=== PATIENT | male | born 1970 | race Caucasian/White ===

== ENCOUNTER → 2023-07-01 08:59 | Outpatient (REF) | payer MEDICARE, SELFPAY | LOC: RAD 08:59 | PROVIDERS: ATTENDING PHYSICIAN Surgery Vascular Surgery; FAMILY PHYSICIAN Family Medicine | DX: Z89.511 Acquired absence of right leg below knee (principal) | CPT/HCPCS: 93922; 93925 ==

== ENCOUNTER → 2023-07-03 06:43 | Outpatient (REF) | payer MEDICARE, SELFPAY ==
[2023-07-03 07:28] LABS: % Basophils 0.8 % (0-2); % Eosinophils 7.1 % (0-6); % Immature Granulocytes 0.4 % (0-0.5); % Lymphocytes 28.5 % (20.5-51.1); % Monocytes 7.7 % (1.7-9.3); % Neutrophils 55.5 % (42.2-75.2); Absolute Basophils 0.1 10^3/uL (0-0.2); Absolute Eosinophils 0.7 10^3/uL (0-0.7); Absolute Lymphocytes 2.8 10^3/uL (1.2-3.4); Absolute Monocytes 0.8 10^3/uL (0.1-0.6); Absolute Neutrophils 5.4 10^3/uL (1.4-6.5); Hematocrit 45.7 % (39.0-52.0); Hemoglobin 14.6 g/dL (13.0-18.0); Mean Corp Hgb Conc. 31.9 g/dL (33.0-37.0); Mean Corpuscular Hgb 30.1 pg (27.0-31.0); Mean Corpuscular Volume 94.2 fL (80.0-94.0); Mean Platelet Volume 11.1 fL (7.4-10.4); Nucleated Red Blood Cells % 0 % (-); Platelet Count 265 10^3/uL (130-400); Red Blood Cell Count 4.85 10^6/uL (4.70-6.10); Red Cell Dist. Width 13.1 % (11.5-14.5); White Blood Cell Count 9.7 10^3/uL (4.8-10.8)
[2023-07-03 08:30] LABS: ALT (SGPT) 38 U/L (0-50); AST (SGOT) 37 U/L (17-59); Albumin 4.1 g/dl (3.5-5.0); Alkaline Phosphatase 116 U/L (38-126); Blood Urea Nitrogen 19 mg/dl (9-20); Calcium 8.8 mg/dl (8.4-10.2); Carbon Dioxide 25 mmol/L (22-30); Chloride 107 mmol/L (98-107); Glucose 131 mg/dl (70-99); HDL Cholesterol 31 mg/dl; LDL Cholesterol, Calculated 23 mg/dl; Magnesium 2.3 mg/dl (1.6-2.3); Potassium 4.3 mmol/L (3.5-5.1); Sodium 138 mmol/L (135-145); Total Bilirubin 0.6 mg/dl (0.2-1.3); Total Cholesterol 105 mg/dl (50-199); Triglyceride 257 mg/dl (10-149); Very Low Density Lipoprotein 51 mg/dl (0-30); eGFR > 60.00
[2023-07-03 08:59] LABS: Glycohemoglobin (HgbA1c) 7.3 % (4.0-5.6)
== END ==
LOC: REG 06:43
PROVIDERS: ATTENDING PHYSICIAN Internal Medicine Interventional Cardiology; FAMILY PHYSICIAN Family Medicine; REFERRING PHYSICIAN Physician Assistant
DX: I10 Essential (primary) hypertension (principal); I25.5 Ischemic cardiomyopathy; E78.2 Mixed hyperlipidemia; I73.9 Peripheral vascular disease, unspecified; E10.52 Type 1 diabetes mellitus with diabetic peripheral angiopathy with gangrene; E10.65 Type 1 diabetes mellitus with hyperglycemia
CPT/HCPCS: 36415; 80053; 80061; 83036; 83735; 85025

== ENCOUNTER 2024-01-31 20:22 | Inpatient (IN) | payer MEDICARE, SELFPAY ==
[2024-01-31 18:04] VITALS: BP 141/74
[2024-01-31 18:49] VITALS: BMI 38.6
--- NOTE | 2024-01-31 19:05 | ED.GENMED ---
History of Present Illness
General
Chief Complaint: Fall
Source: patient
Time Seen by Provider: 01/31/24 18:54
History of Present Illness
History of Present Illness:
53yoM with a history of coronary artery disease, CHF, insulin-dependent diabetes, peripheral artery disease s/p right BKA, and chronic pain on opioids presenting with his for evaluation after a fall this afternoon. Patient was walking with his
prosthetic on when he missed a step and fell. He fell on his right buttocks. He denies any head strike or LOC. Patient is currently complaining of right hip and right knee pain. He denies any headache, neck pain, abdominal pain. He is unsure if he
takes any blood thinners. He states 'I take a lot of medications but I'm not sure what they are for.' Xarelto and aspirin listed on chart.
Past History
Past History
ED Past Medical History: CAD, Cancer, HTN, Hypercholesterolemia, IDDM, NIDDM, Other (Narcolepsy, sleep apnea) and Other (Gastric bypass, asthma, sleep apnea, hypothyroidism,)
ED Past Surgical History: Orthopedic (Distal toe amputation right second and third toes) and Other (Gastric bypass, right digit amputation, partial thyroidectomy)
Social History
Tobacco: Non-smoker
Alcohol: None
Drug: None
Personal:
Living: with family
Employment: Employed
Family History
Family History: Diabetes
Phy Exam
General Physical Exam
General Presentation: well appearing and no apparent distress
General age: appears stated age
General Skin: warm and dry
General Habitus: normal
General Mental: alert
ENT Exam
ENT Exam: normocephalic
Additional ENT: No cervical spine tenderness
Eye Exam
Eye Exam: PERRL
Cardiovascular Exam
Cardiovascular Exam: regular rate/rhythm
Pulmonary Exam
Pulmonary Exam: lungs clear, no respiratory distress, no crackles and no wheezing
Gastrointestinal Exam
Gastrointestinal Exam: non tender, soft and non distended
Neurological Exam
Neurological Exam: alert
[place] Coma Scale
Eye Opening: Spontaneous
Verbal Response: Oriented
Motor Response: Obeys Commands
GCS Total Score: 15
Musculoskeletal Exam
Musculoskeletal Exam: other (R hip: No deformity or ecchymosis noted. ROM decreased 2/2 pain. Pain with passive internal and external rotation of hip. Stump appears normal.)
Skin Exam
Skin Exam: normal color
Psychiatric Exam
Psychiatric Exam: normal mood/affect
Course
Orders/Labs/Results
Orders:
Orders
01/31/24 18:07
CR Knee - Right 1 Or 2 Views Urgent
Reason For Exam: pain
Hip, Right 2-3 Views [CR Hip - RT w/wo Pel 2-3 Vw*] Urgent
Comment:
Reason For Exam: pain
Include a pelvis x-ray?: Yes
01/31/24 19:05
HYDROmorphone [Dilaudid] 1 mg IV NOW STA
01/31/24 19:12
CR Femur - Right Min 2 Vw Urgent
Comment:
Reason For Exam: F/u hip fracture
01/31/24 19:15
Type+Screen Urgent
Complete Blood Count/With Diff Urgent
Comprehensive Metabolic Panel Urgent
PTT Urgent
Prothrombin Time Urgent
01/31/24 20:10
Admit/Transfer Patient As Directed
Co-Sign Provider:
Level of Care: Inpatient admission
Assign to:: Medical/Surgical
Physician / Group: [facility]
Diagnosis: hip fracture
Reason for Hospitalization: hip fracture
Expected length of stay greater than two midnights?: Yes
ELOS- Estimated Length of Stay in days: 2
I certify the patient meets the requirements for IP care: Yes
Code Status As Directed
Resuscitation Status: Full Code
PRN Pain Medication Management As Directed
May give lesser potent ordered pain med per pt: Yes
preference::
Protocol:: Medication orders for pain may be administered in a
manner that supports deferring to patient preference
when the pt is:
- Requesting an ordered lesser potent pain medication.
Least to most potent pain medications are defined
as: acetaminophen < NSAID < tramadol < opioids
(morphine, oxycodone, hydromorphone).
- Requesting a lesser dose of the same medication IF
ORDERED.
- Requesting a less intrusive route of administration
if both routes are prescribed by the provider (PO <
IV).
Abnormal Lab Results
01/31/24
19:15
WBC 13.8 H 10^3/uL
(4.8-10.8)
RBC 4.60 L 10^6/uL
(4.70-6.10)
MCHC 32.7 L g/dL
(33.0-37.0)
MPV 10.9 H fL
(7.4-10.4)
Abs Immat Gran (auto) 0.1 H 10^3/uL
(0-0.05)
Absolute Neuts (auto) 10.8 H 10^3/uL
(1.4-6.5)
Absolute Monos (auto) 0.9 H 10^3/uL
(0.1-0.6)
Immature Gran % 0.7 H %
(0-0.5)
Neutrophils % 78.4 H %
(42.2-75.2)
Lymphocytes % 11.4 L %
(20.5-51.1)
BUN 23 H mg/dl
(9-20)
Glucose 104 H mg/dl
(70-99)
01/31/24 19:15
01/31/24 19:15
Vital Signs
Initial and Last Documented VS:
Initial Vital Signs
Temp Pulse Resp BP Pulse Ox
98 F 80 16 141/74 93
01/31/24 18:04 01/31/24 18:04 01/31/24 18:04 01/31/24 18:04 01/31/24 18:04
Last Documented Vital Signs
Temp Pulse Resp BP Pulse Ox
98 F 80 16 141/74 93
01/31/24 18:04 01/31/24 18:04 01/31/24 18:04 01/31/24 18:04 01/31/24 18:04
MDM/Problems Addressed
Differential Diagnosis Includes:
53yoF here with R hip and knee pain s/p mechanical fall this afternoon. Hx of R BKA. No deformity on exam. There is pain with ROM of the hip. RLE is neurovascularly intact. Differential diagnosis includes but is not limited to: fracture,
dislocation, contusion, sprain
X-rays of R hip and knee obtained in triage. X-rays shows an intertrochanteric fracture that is mildly displaced. Orthopedics, Dr. Cerrato, notified who requests full length femur films. IV, labs, and Dilaudid ordered. Patient admitted for further
management.
*Critical Care Note
Total Time (30-74mins, 75-104mins- exclusive of procedures): Not Applicable
ED Attending Note
-
Portions of this chart may have been created with voice recognition software.� Occasional wrong word or��sound alike� substitutions may have occurred due to the inherent limitations of voice recognition software.
Discharge Plan
Departure
Patient Disposition: Admit
Date of Disposition: 01/31/24
Time of Disposition: 19:36
Presentation/result/management discussed w/ accepting MD/DO: Hospitalist
Discharge Problem:
Closed intertrochanteric fracture of right femur
Interventions
Interventions:
*Risk Screen - Suicide Last Done: 01/31/24 18:04
*General Assessment Last Done: 01/31/24 18:50
*Neglect/Abuse Screening Last Done: 01/31/24 18:50
*ED COVID-19 Vaccine History Last Done: 01/31/24 18:50
ED-Musculoskeletal Assessment Last Done: 01/31/24 18:52
ED- Neurological Assessment Last Done: 01/31/24 18:52
ED-Skin Assessment Last Done: 01/31/24 18:52
[2024-01-31] MEDS: DILAUDID 1 MG IV (19:16)
[2024-01-31 19:27] LABS: % Basophils 0.6 % (0-2); % Eosinophils 2.6 % (0-6); % Immature Granulocytes 0.7 % (0-0.5); % Lymphocytes 11.4 % (20.5-51.1); % Monocytes 6.3 % (1.7-9.3); % Neutrophils 78.4 % (42.2-75.2); Absolute Basophils 0.1 10^3/uL (0-0.2); Absolute Eosinophils 0.4 10^3/uL (0-0.7); Absolute Immature Granulocytes 0.1 10^3/uL (0-0.05); Absolute Lymphocytes 1.6 10^3/uL (1.2-3.4); Absolute Monocytes 0.9 10^3/uL (0.1-0.6); Absolute Neutrophils 10.8 10^3/uL (1.4-6.5); Hematocrit 39.7 % (39.0-52.0); Mean Corp Hgb Conc. 32.7 g/dL (33.0-37.0); Mean Corpuscular Hgb 28.3 pg (27.0-31.0); Mean Corpuscular Volume 86.3 fL (80.0-94.0); Mean Platelet Volume 10.9 fL (7.4-10.4); Nucleated Red Blood Cells % 0 % (-); Platelet Count 248 10^3/uL (130-400); Red Cell Dist. Width 14.1 % (11.5-14.5); White Blood Cell Count 13.8 10^3/uL (4.8-10.8)
[2024-01-31 19:39] LABS: APTT 34.2 Sec (23.4-35.0)
[2024-01-31 19:42] LABS: INR 1.16; PT 14.6 Sec (11.4-14.6)
[2024-01-31 19:46] LABS: ALT (SGPT) 27 U/L (0-50); AST (SGOT) 31 U/L (17-59); Albumin 4.4 g/dl (3.5-5.0); Alkaline Phosphatase 125 U/L (38-126); Blood Urea Nitrogen 23 mg/dl (9-20); Calcium 9.2 mg/dl (8.4-10.2); Carbon Dioxide 22 mmol/L (22-30); Chloride 105 mmol/L (98-107); Estimated Creatinine Clearance 116 ml/min; Glucose 104 mg/dl (70-99); Potassium 4.2 mmol/L (3.5-5.1); Sodium 143 mmol/L (135-145); Total Bilirubin 0.4 mg/dl (0.2-1.3); Total Protein 7.2 g/dl (6.3-8.2); eGFR > 60.00
--- NOTE | 2024-01-31 20:14 | HPS.HSE ---
Family Physician
-
Family Physician: Obi Shin
Chief Complaint
-
fall, right hip pain
History of Present Illness
53-year-old male past medical history of CAD, HFpEF, diabetes, hyperlipidemia, peripheral arterial disease, hypertension, hyperlipidemia, peripheral neuropathy, hypothyroidism, anemia, obesity, presenting for fall this afternoon. He was walking
with his prosthetic when he missed a step and fell. He fell onto his right buttock. Denies hitting his head. He is complaining of right hip and right knee pain.
He last took Xarelto last night.
He denies any recent chest pain or shortness of breath.
Medical History
Past Medical History
Past Medical History: Reports Other ( CAD, HFpEF, diabetes, hyperlipidemia, peripheral arterial disease, hypertension, hyperlipidemia, peripheral neuropathy, hypothyroidism, anemia, obesity, )
Past Surgical History: Reports Other (Orthopedic (Distal toe amputation right second and third toes) and Other (Gastric bypass, right digit amputation, partial thyroidectomy))
Social History
Tobacco: Non-smoker
Alcohol: None
Drug: None
Family History
Family History: Not pertinent
Allergies / Home Medications
Allergies reflects when Allergies were last updated in [employer].
Home Medications with original date entered in [employer]
Allergy/Medication List:
Allergies
Allergy/AdvReac Type Severity Reaction Status Date / Time
Iodinated Contrast Media Allergy Severe Anaphylaxis Verified 01/31/24 18:06
[Iodinated Contrast Media -
IV Dye]
Poultry Allergy Severe Anaphylaxis Verified 01/31/24 18:06
Home Medications
aspirin 81 mg tablet,delayed release 81 mg PO DAILY Blood clot prevention/tx 08/30/17
dapagliflozin propanediol 10 mg tablet (Farxiga) 10 mg PO DAILY Diabetes 01/09/22
dextroamphetamine-amphetamine 20 mg tablet See Rx Instructions .Route .COMPLEX ADD 01/09/22
glipizide 10 mg tablet 10 mg PO MEALS Diabetes 01/09/22
levothyroxine 200 mcg tablet 200 mcg PO DAILY AT 0700 Thyroid 01/09/22
atorvastatin 80 mg tablet (Lipitor) 80 mg PO QPM High cholesterol 05/10/22
insulin human U-100 NPH-regulr 70-30 mix 100 unit/mL subcutaneous susp (Novolin 70/30 U-100 Insulin) 90 unit SC BID Diabetes 05/10/22
insulin regular human 100 unit/mL injection solution (Novolin R Regular U-100 Insulin) 30 unit SC AC Diabetes 05/10/22
dicyclomine 10 mg capsule 10 mg PO QID Abdominal Pain #0 caps 05/22/22
furosemide 40 mg tablet 40 mg PO BID@0800,1600 Heart Failure #60 tabs 05/22/22
zolpidem 10 mg tablet (Ambien) 10 mg PO HS Sleep 07/02/22
hydrocodone 10 mg-acetaminophen 325 mg tablet 1 tab PO QID PRN pain 09/26/22
metoprolol succinate 50 mg tablet,extended release 24 hr See Rx Instructions .Route .COMPLEX Heart disease/condition 09/26/22
potassium chloride 20 mEq tablet,extended release 10 meq PO TID Electrolyte Repletion 09/26/22
rivaroxaban 20 mg tablet (Xarelto) 20 mg PO QPM Blood clot prevention/tx 09/26/22
multivitamin 1 tab PO DAILY Supplement 10/01/22
ferrous sulfate 325 mg (65 mg iron) tablet 325 mg PO DAILY 12/17/22
mecobalamin (vitamin B12) 1,000 mcg chewable tablet 2,000 mcg PO DAILY 12/17/22
hydromorphone 8 mg tablet (Dilaudid) See Rx Instructions .Route .COMPLEX 12/19/22
cholecalciferol (vitamin D3) 50 mcg (2,000 unit) tablet See Rx Instructions .Route .COMPLEX 07/23/23
duloxetine 30 mg capsule,delayed release See Rx Instructions .Route .COMPLEX 07/23/23
magnesium 200 mg tablet See Rx Instructions .Route .COMPLEX 07/23/23
sacubitril 49 mg-valsartan 51 mg tablet (Entresto) See Rx Instructions .Route .COMPLEX 07/23/23
Review of Systems
-
History Source: Patient
A 12 point ROS was completed and negative except as noted: Yes
Constitutional: Reports No Symptoms
EENT: Reports No Symptoms
Respiratory: Reports No Symptoms
Cardiac: Reports No Symptoms
Abdomen/GI: Reports No Symptoms
: Reports No Symptoms
Musculoskeletal: Reports No Symptoms
Skin: Reports No Symptoms
Neurological: Reports No Symptoms
Endocrine: Reports No Symptoms
Hematologic/Lymphatic: Reports No Symptoms
Psych: Reports No Symptoms
Physical Exam
Vital Signs
Vital Signs
Temp Pulse Resp BP Pulse Ox
98 F 80 16 141/74 93
01/31/24 18:04 01/31/24 18:04 01/31/24 18:04 01/31/24 18:04 01/31/24 18:04
Physical Exam
General: Well Developed, Well Nourished and No Apparent Distress
HEENT: NormoCephalic, Moist mucous membranes and Atraumatic
Respiratory: Clear
Cardiac: S1/S2 and Regular Rhythm; No Murmur or Rub
GI: Soft, Non Tender, Non Distended and Normal Bowel Sounds; No Organomegaly
Rectal: Deferred by Provider
Musculoskeletal: No Clubbing, No Cyanosis and No Edema
Skin: No Rash
Neuro: Nonfocal/grossly intact
Laboratory Results
-
01/31/24 19:15
01/31/24 19:15
Laboratory Results
PT 14.6 Sec (11.4-14.6) 01/31/24 19:15
INR 1.16 01/31/24 19:15
APTT 34.2 Sec (23.4-35.0) 01/31/24 19:15
Total Bilirubin 0.4 mg/dl (0.2-1.3) 01/31/24 19:15
AST 31 U/L (17-59) 01/31/24 19:15
ALT 27 U/L (0-50) 01/31/24 19:15
Alkaline Phosphatase 125 U/L (38-126) 01/31/24 19:15
Data Reviewed
-
Lab Data: Labs Reviewed by me
Old Records: Reviewed
Impression/Plan
-
IMPRESSION:
PLAN:
# Acute right intertrochanteric proximal femur fracture with mild displacement
-Hold Xarelto
-N.p.o. past midnight although he last took Xarelto last night
-Ortho consulted
-Patient is high risk for surgery given history of CAD, PAD, diabetes, however well compensated without chest pain or evidence of heart failure at this time
CAD
-Continue aspirin, statin
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
Chronic HFmrEF
-Continue dapagliflozin
-Continue Entresto
-Continue Lasix
Peripheral arterial disease status post right BKA
Essential hypertension
-Continue metoprolol
Type 2 diabetes
-Patient normally takes 90 units of Novolin 70/30 twice daily plus sliding scale
-Change to NPH 45 BID plus high-dose insulin sliding scale, uptitrate as necessary
-Continue dapagliflozin
-Hold glipizide
Hyperlipidemia
Peripheral neuropathy/phantom pain
-Continue duloxetine
-Continue hydrocodone/Tylenol, Dilaudid
Hypothyroidism
-Continue levothyroxine
Chronic anemia
Obesity
Full code
DVT prophylaxis�none
Diabetic diet, n.p.o. past midnight
[2024-01-31 21:39] VITALS: BP 155/81; BMI 39.0
[2024-01-31] MEDS: DILAUDID 0.5 MG IV (23:15)
[2024-02-01] VITALS (11 sets, daily range): BP systolic 103–152; BP diastolic 54–71; BMI 38.9
[2024-02-01] MEDS: NORCO 7.5/325 1 TABLET PO ×3 (05:06→22:32)
[2024-02-01 06:38] LABS: Glucose - Point of Care 157 mg/dl (70-99)
--- NOTE | 2024-02-01 07:27 | W.PN.HOSP.TC ---
Today's Communication/Plan
-
NPO for orthopedic surgical intervention right Hip
At elevated risk complications but risk is not prohibitive
Glycemic Control
Pain Control
Assessment / Plan
Assessment / Plan
Physical Exam
General: Well Developed, Well Nourished and No Apparent Distress
HEENT: NormoCephalic, Moist mucous membranes and Atraumatic
Respiratory: Clear
Cardiac: S1/S2 and Regular Rhythm; No Murmur or Rub
GI: Soft, Non Tender, Non Distended and Normal Bowel Sounds; No Organomegaly
Musculoskeletal: No Clubbing, No Cyanosis and No Edema. Right BKA
Skin: No Rash
Neuro: AOx3
53MCAD, HFmrEF, diabetes, hyperlipidemia, peripheral arterial disease, rt BKA, hypertension, hyperlipidemia, neuropathy, hypothyroidism, anemia, obesity, ambulates with prosthetic at baseline here for fall right hip fracture
# Acute right intertrochanteric proximal femur fracture with mild displacement
-Hold Xarelto
-N.p.o.
-Ortho consult appreciated
-Patient is high risk for surgery complication given history of CAD, PAD, diabetes, however well compensated without chest pain or evidence of heart failure at this time. Risk is not prohibitive
CAD
-Continue aspirin, statin
-Patient states his lymphedema therapist ordered Xarelto but he does not know why, denies history of A-fib
Chronic HFmrEF
-Continue dapagliflozin
-Continue Entresto
-Continue Lasix
Peripheral arterial disease status post right BKA
Essential hypertension
-Continue metoprolol
Type 2 diabetes
-sliding scale
-insulin regimen, monitor and titrate as necessary
-Continue dapagliflozin
-Hold glipizide
Hyperlipidemia
Peripheral neuropathy/phantom pain
-Continue duloxetine
-Continue hydrocodone/Tylenol, Dilaudid
Hypothyroidism
-Continue levothyroxine
Chronic anemia
Obesity
Full code
DVT prophylaxis on hold for now pending orthopedic surgical intervention, not a candidate for SCD d/t Peripheral Artery Disease.
I spent a total of 50 minutes with the patient or on the floor. More than 50% of this time involved counseling and coordination of care.
Anticipated Discharge: > 48 hours
Subjective/Interval History
-
Date of Service: February 01, 2024
Seen and examined at bedside in no acute distress resting comfortably in bed. Reports pain well controlled at this time.
Objective Data
-
Labs:
Laboratory Results
01/31/24 02/01/24
19:15 06:35
WBC 13.8 H Pending
Hgb 13.0 Pending
Hct 39.7 Pending
Plt Count 248 Pending
PT 14.6
INR 1.16
APTT 34.2
Sodium 143 Pending
Potassium 4.2 Pending
Chloride 105 Pending
Carbon Dioxide 22 Pending
BUN 23 H Pending
Creatinine 0.9 Pending
Glucose 104 H Pending
Calcium 9.2 Pending
Total Bilirubin 0.4 Pending
AST 31 Pending
ALT 27 Pending
Alkaline Phosphatase 125 Pending
Vital Signs:
Vital Signs
Temp Pulse Resp BP Pulse Ox
97.9 F 79 18 155/81 95
01/31/24 21:39 01/31/24 21:39 01/31/24 21:39 01/31/24 21:39 01/31/24 21:39
I&O
01/31/24 02/01/24 02/02/24
06:59 06:59 06:59
Output Total 100 / 100
Balance -100 / -100
[2024-02-01 07:37] LABS: % Basophils 0.6 % (0-2); % Immature Granulocytes 0.4 % (0-0.5); % Lymphocytes 14.5 % (20.5-51.1); % Monocytes 7.9 % (1.7-9.3); % Neutrophils 69.6 % (42.2-75.2); Absolute Basophils 0.1 10^3/uL (0-0.2); Absolute Eosinophils 0.8 10^3/uL (0-0.7); Absolute Lymphocytes 1.6 10^3/uL (1.2-3.4); Absolute Monocytes 0.9 10^3/uL (0.1-0.6); Absolute Neutrophils 7.8 10^3/uL (1.4-6.5); Hematocrit 39.5 % (39.0-52.0); Mean Corp Hgb Conc. 32.9 g/dL (33.0-37.0); Mean Corpuscular Hgb 29.5 pg (27.0-31.0); Mean Corpuscular Volume 89.8 fL (80.0-94.0); Mean Platelet Volume 11.5 fL (7.4-10.4); Nucleated Red Blood Cells % 0 % (-); Platelet Count 221 10^3/uL (130-400); Red Cell Dist. Width 14.1 % (11.5-14.5); White Blood Cell Count 11.2 10^3/uL (4.8-10.8)
[2024-02-01 08:00] LABS: ALT (SGPT) 23 U/L (0-50); AST (SGOT) 26 U/L (17-59); Albumin 3.9 g/dl (3.5-5.0); Alkaline Phosphatase 130 U/L (38-126); Blood Urea Nitrogen 19 mg/dl (9-20); Calcium 8.8 mg/dl (8.4-10.2); Carbon Dioxide 26 mmol/L (22-30); Chloride 102 mmol/L (98-107); Estimated Creatinine Clearance > 125 ml/min; Glucose 131 mg/dl (70-99); Potassium 4.8 mmol/L (3.5-5.1); Sodium 140 mmol/L (135-145); Total Protein 6.8 g/dl (6.3-8.2); eGFR > 60.00
--- NOTE | 2024-02-01 08:11 | PTCARENOTE ---
Patient refused both insulins this AM. Patient stated, 'I am not taking insulin if I cannot eat'. Patient educated that since the patient is NPO he will get his blood sugar checked every 6 hours and insulin will be dosed based off of blood sugar.
Patient refused education. Dr. Henry made aware. Care ongoing at this time.
[2024-02-01] MEDS: DILAUDID 1 MG IV (08:31)
--- NOTE | 2024-02-01 08:55 | CON.ORTHO ---
Consultation
-
Date/Time Consultation Requested: 01/31/2024 0711
Date/Time Consultation Performed: 02/01/2024 0800
Requesting Provider: Patricia Belle
Performing Provider: Valerio Cerrato
Reason for Consultation: Right hip fracture
Consultation - Orthopedics
History
Orthopedic Surgery Note
CC: Right hip fracture
HPI: 53-year-old male with a history of right BKA presented to the emergency department after sustaining a trip and fall. He landed on the right side and had immediate pain and was unable to weight-bear. X-rays in the ER showed signs of a
displaced proximal femur fracture. He has pain in the right groin and thigh. His below-knee amputation was performed about 18 months ago. He has been ambulating with a prosthesis. He denies pain in the left leg of the upper extremities.
PMH/PSH: CAD, DM, HL, PAD, HTN, HL, hypothyroid, obesity, R BKA
Medications: reviewed, eliquis
Family History: Family history was reviewed. Noncontributory
Social history: Nonsmoker, no illicit drugs
Exam
General appearance: Pleasant. Painful affect.
Head: Normocephalic/atraumatic
Nose: No lesions or discharge.
Skin: No obvious rashes or open wounds
Lungs: No audible wheezing, no cough or sputum production
Musculoskeletal:
RLE:
skin intact without open wounds
transtibial amputation
pain with active motion
scar on thigh c/w prior skin graft donor site
Imaging:
Pelvis and right femur x-rays show signs of a intertrochanteric right femur fracture with displacement. No distal hardware or pathologic appearing lesions.
AP: 53-year-old male with a right intertrochanteric proximal femur fracture. I discussed treatment options with the patient. We discussed surgical fixation with cephalomedullary nail. We discussed the risks of surgery including infection,
nonunion, malunion, hardware complications, and continued pain. Shared decision was to proceed with right proximal femur ORIF with cephalomedullary nail. We discussed the recovery process. All questions were answered.
> 75 minutes was spent reviewing the clinical information, evaluating the patient, and formulating clinical plan.
Allergies / Home Medications
Allergy/AdvReac Type Severity Reaction Status Date / Time
Iodinated Contrast Media Allergy Anaphylaxis Verified 01/31/24 22:11
[Iodinated Contrast Media -
IV Dye]
Poultry Allergy Anaphylaxis Verified 01/31/24 22:11
�Medication �Instructions �Recorded
aspirin 81 mg tablet,delayed 81 mg PO DAILY Blood clot 08/30/17
release prevention/tx
dapagliflozin propanediol 10 mg 10 mg PO DAILY Diabetes 01/09/22
tablet (Farxiga)
dextroamphetamine-amphetamine 20 See Rx Instructions .Route 01/09/22
mg tablet .COMPLEX ADD
glipizide 10 mg tablet 10 mg PO MEALS Diabetes 01/09/22
levothyroxine 200 mcg tablet 200 mcg PO DAILY AT 0700 Thyroid 01/09/22
atorvastatin 80 mg tablet (Lipitor) 80 mg PO QPM High cholesterol 05/10/22
insulin human U-100 NPH-regulr 90 unit SC BID Diabetes 05/10/22
70-30 mix 100 unit/mL subcutaneous
susp (Novolin 70/30 U-100 Insulin)
insulin regular human 100 unit/mL 30 sliding scale dose SC AC 05/10/22
injection solution (Novolin R Diabetes
Regular U-100 Insulin)
dicyclomine 10 mg capsule 10 mg PO QID Abdominal Pain #0 caps 05/22/22
furosemide 40 mg tablet 40 mg PO BID@0800,1600 Heart 05/22/22
Failure #60 tabs
zolpidem 10 mg tablet (Ambien) 10 mg PO HS Sleep 07/02/22
hydrocodone 10 mg-acetaminophen 1 tab PO QID PRN pain 09/26/22
325 mg tablet
metoprolol succinate 50 mg See Rx Instructions .Route 09/26/22
tablet,extended release 24 hr .COMPLEX Heart disease/condition
potassium chloride 20 mEq 10 meq PO TID Electrolyte Repletion 09/26/22
tablet,extended release
rivaroxaban 20 mg tablet (Xarelto) 20 mg PO QPM Blood clot 09/26/22
prevention/tx
multivitamin 1 tab PO DAILY Supplement 10/01/22
ferrous sulfate 325 mg (65 mg 325 mg PO DAILY 12/17/22
iron) tablet
mecobalamin (vitamin B12) 1,000 2,000 mcg PO DAILY 12/17/22
mcg chewable tablet
hydromorphone 8 mg tablet See Rx Instructions .Route .COMPLEX 12/19/22
(Dilaudid)
cholecalciferol (vitamin D3) 50 See Rx Instructions .Route .COMPLEX 07/23/23
mcg (2,000 unit) tablet
duloxetine 30 mg capsule,delayed See Rx Instructions .Route .COMPLEX 07/23/23
release
magnesium 200 mg tablet See Rx Instructions .Route .COMPLEX 07/23/23
sacubitril 49 mg-valsartan 51 mg See Rx Instructions .Route .COMPLEX 07/23/23
tablet (Entresto)
Vital Signs / Lab Results
Temp Pulse Resp BP Pulse Ox
98.1 F 68 18 152/68 99
02/01/24 07:25 02/01/24 07:25 02/01/24 07:25 02/01/24 07:25 02/01/24 07:25
02/01/24 06:35
02/01/24 06:35
[2024-02-01 11:00] LABS: Glycohemoglobin (HgbA1c) 6.5 % (4.0-5.6)
--- NOTE | 2024-02-01 11:04 | CM ---
CM met with pt and spouse at bedside.
Pt resides with spouse in a 1 with ramp access. Pt uses a prosthetic, WC, RW and shower chair at home.
Confirmed PCP is Obi Miller and pharmacy is [facility] on [address].
Confirmed insurance, unsure if has a prescription plan.
Pt has HC history with [facility]. Rehab hx with [facility].
Pt currently is going to outpt PT at [facility] 2 times/week and preference is to resume when cleared to do so. Pt declines HC services at this time and is not interested in SNF.
CM/SW to follow and assist.
--- NOTE | 2024-02-01 11:50 | PTCARENOTE ---
1200 blood sugar check and insulin administration not completed due to patient being in OR. Care ongoing at this time.
--- NOTE | 2024-02-01 14:05 | OR.RPT ---
Operative Report
Operative Report
Orthopaedic Surgery Operative Note
DATE OF OPERATION: 02/01/2024
PREOPERATIVE DIAGNOSIS: Intertrochanteric Hip Fracture, Right
POSTOPERATIVE DIAGNOSIS: Same
OPERATION PERFORMED: Right intertrochanteric hip fracture open reduction and internal fixation with cephalomedulary nail
SURGEON: Suraj Cerrato MD
GEODETIC SURVEYOR: NA
ANESTHESIA: General
COMPLICATIONS: None.
ESTIMATED BLOOD LOSS: 200 mL.
DRAINS: None
SPECIMEN: None
IMPLANTS:
Bautista Gamma Cephalomeduallary nail; 400 mm by 10 mm
Hyden lag screw, 100 mm.
5.0 mm distal interlocking screw x1
INDICATIONS FOR PROCEDURE
53M with h/o R transtibial amputation presented to the ED after a fall. Xrays showed displaced right intertrochanteric hip fracture. I discussed treatment options with the patient including nonoperative and operative treatments. We reviewed the
natural history of the problem, as well as the risks, benefits, and alternatives of various treatment options. Shared decision was to proceed with surgical treatment. The patient understood the risks including, but were not limited to, bleeding,
infection, failure to relieve pain, more pain than preop, damage to blood vessels and nerves, need for reoperation, mechanical failure of the implants, wound healing problems, stiffness, instability, blood clot, pulmonary embolism, myocardial
infarction, pneumonia, arrhythmia, CVA, and . All questions were answered, and informed consent was obtained.
PROCEDURE IN DETAIL: The patient was identified in the preoperative holding area. The operative limb was identified as the operative site and marked with my initials. The patient was transferred to the operating room. General anesthesia was
performed. The patient was transferred to the [facility] operative table. IV antibiotics and tranexamic acid were given. All bony prominences were well padded. The operative limb was prepped and draped in the usual sterile fashion.
We performed a surgical time-out. A 1.6mm (0.65'') sarahy wire was placed in the distal femur, and traction bow was applied. This was well padded over the knee. 15lbs of skeletal traction was applied. The fracture was reduced with the aid of
flouroscopy. The guide wire was placed over the medial aspect of the tip of the greater trochanter. The guide wire was advanced and checked for appropriate position on AP and lateral. The pin guide wire was advanced to the level of the lesser
trochanter. Incision was made about the wire. The opening reamer was used to open the starting point over the guide wire. A ball-tipped guide wire was advanced to the distal femur. Length was measured to be 410 mm. The femoral canal was sequentially
reamed with the fracture reduced starting with a 9.5mm reamer up to 11.5mm. The nail was then inserted over the guidewire down to the appropriate depth. The guide wire was removed. The targeting guide was assembled, and a lateral incision was made
for lag screw placement. A guide pin was advanced into the femoral head. Position was checked on AP and lateral. The length was measured to be 108mm. The drill was set to the appropriate depth, and the lag screw path was drilled over the guide wire.
The lag screw was then inserted into the femoral head just distal to the subchondral bone. Compression was applied to the fracture. The locking screw was then placed into the top of the nail. Skeletal traction was removed, and a single distal
interlocking screw was placed into the static hole with perfect keweenaw technique. Final fluoroscopy shots were performed which showed appropriate position and length of the implant and anatomic reduction of the fracture.
The incisions were copiously irrigated with 3L of normal saline. The deep fascial layers were closed with 0 PDS. The dermal layer closed with 2-0 PDS running. The skin was closed with 3-0 monocryl. Skin glue was applied as well as sterile dressings.
The patient was awoken from anesthesia without complication.
The patient awoke from anesthesia without difficulty. Sponge and instrument counts were correct x2 at the end of the case.
I was present and participated in the entire procedure. The patient was sent to the recovery room in stable condition.
Post operative plan:
WBAT
PT/OT
Pain control
ABX: Ancef
DVT: Resume factor X
Valerio Cerrato MD
[2024-02-01 14:06] LABS: Glucose - Point of Care 130 mg/dl (70-99)
[2024-02-01] MEDS: DILAUDID 0.5 MG IV ×2 (14:31→14:56)
--- NOTE | 2024-02-01 15:44 | PTCARENOTE ---
1535: Patient arrived back to 2S post surgery. Patient drowsy but arouses easily to voice. 2 aquacell's on R hip clean dry and intact. 2 4x4 with tegaderm on medial and lateral pats of R knee clean dry and intact. Patient wearing 2L NC with SpO2
greater than 92%. Call aguirre within reach and bed in lowest position. Family at bedside.
--- NOTE | 2024-02-01 16:40 | PTCARENOTE ---
Patient more alert. Patient complaining of R hip pain. Pain medication administered per JUL. Care ongoing at this time.
[2024-02-01 16:44] LABS: Glucose - Point of Care 104 mg/dl (70-99)
--- NOTE | 2024-02-01 17:18 | PTCARENOTE ---
Patient refused both insulins this PM. Patient stated, 'I am not taking any insulin. I do not need it'. Patient education provided Patient refused education. Dr. Henry made aware. Care ongoing at this time.
[2024-02-01] MEDS: LOW STRENGTH ASPIRIN 81 MG PO (17:29)
[2024-02-01] MEDS: ANCEF 5 IV (20:31)
[2024-02-01 21:33] LABS: Glucose - Point of Care 159 mg/dl (70-99)
[2024-02-02] MEDS: ANCEF 5 IV (04:16)
[2024-02-02] MEDS: NORCO 7.5/325 1 TABLET PO ×2 (04:30→12:25)
[2024-02-02 06:00] VITALS: BMI 38.4
--- NOTE | 2024-02-02 07:15 | W.PN.HOSP.TC ---
Today's Communication/Plan
-
Pain control
resume home glipizide reduced dose
cont fingerstick monitoring
cont Entresto Metoprolol with holding parameters
monitor off Lasix for now, patient refusing
daily weight I/O
wound care
PT/OT
Assessment / Plan
Assessment / Plan
Physical Exam
General: Well Developed, Well Nourished and No Apparent Distress
HEENT: NormoCephalic, Moist mucous membranes and Atraumatic
Respiratory: Clear
Cardiac: S1/S2 and Regular Rhythm; No Murmur or Rub
GI: Soft, Non Tender, Non Distended and Normal Bowel Sounds; No Organomegaly
Musculoskeletal: No Clubbing, No Cyanosis and No Edema. Right BKA
Skin: No Rash
Neuro: AOx3
53MCAD, HFmrEF, diabetes, hyperlipidemia, peripheral arterial disease, rt BKA, hypertension, hyperlipidemia, neuropathy, hypothyroidism, anemia, obesity, ambulates with prosthetic at baseline here for fall right hip fracture
# Acute right intertrochanteric proximal femur fracture with mild displacement
ortho eval appreciated
-right hip fx s/p ORIF 01/31 internal fixation with cephalomedulary nail
-PT/OT; weightbearing as tolerated to right lower extremity with assist devices as indicated.
-ok to resume home aspirin and Xarelto
CAD
-Continue aspirin, statin
-Patient states his electronic parts salesperson (Dr Moon) ordered Xarelto but he does not know why, denies history of A-fib
Chronic HFmrEF
-Continue dapagliflozin
-Continue Home Entresto
-Patient refusing his home Lasix 40 mg BID at this time. Appears euvolemic at this time. Monitor off.
Peripheral arterial disease status post right BKA
Essential hypertension
-Continue metoprolol
Type 2 diabetes
-Continue dapagliflozin
-patient refusing his home insulin citing poor oral intake appetite
-Sugars relatively well controlled at this time without insulin correction
-notably high insulin regimen at home likely d/t diet
-A1c 6.5
-Home glipizide resumed at reduced dose for now, 5 mg daily titrated up to 5 mg BID
Abd pain chronically on bentyl
-bentyl resumed
Narcolepsy
-home adderall resumed
Hyperlipidemia
Peripheral neuropathy/phantom pain
-Continue duloxetine
-Continue hydrocodone/Tylenol, prn Dilaudid
Hypothyroidism
-Continue levothyroxine
Chronic anemia
Obesity
PT/OT appreciated Acute vs SNF rehab
Full code
DVT prophylaxis Xarelto
discussed with patient and his Miya
I spent a total of 50 minutes with the patient or on the floor. More than 50% of this time involved counseling and coordination of care.
Anticipated Discharge: 24 - 48 hours
Subjective/Interval History
-
Date of Service: February 02, 2024
Mild distress d/t pain Rt hip RLE stump. Sitting up comfortably in chair. Miya present during evaluation.
Objective Data
-
Labs:
Laboratory Results
02/02/24
06:25
WBC Pending
Hgb Pending
Hct Pending
Plt Count Pending
Sodium Pending
Potassium Pending
Chloride Pending
Carbon Dioxide Pending
BUN Pending
Creatinine Pending
Glucose Pending
Calcium Pending
Vital Signs:
Vital Signs
Temp Pulse Resp BP Pulse Ox
98.7 F 100 16 116/67 94
02/01/24 23:00 02/01/24 23:00 02/01/24 23:00 02/01/24 23:00 02/01/24 23:00
I&O
02/01/24 02/02/24 02/03/24
06:59 06:59 06:59
Intake Total 1520 / 1520
Output Total 100 / 100 1150 / 1150
Balance -100 / -100 370 / 370
[2024-02-02 07:19] LABS: Hematocrit 32.2 % (39.0-52.0); Hemoglobin 10.6 g/dL (13.0-18.0); Mean Corp Hgb Conc. 32.9 g/dL (33.0-37.0); Mean Corpuscular Hgb 28.7 pg (27.0-31.0); Mean Corpuscular Volume 87.3 fL (80.0-94.0); Mean Platelet Volume 11.2 fL (7.4-10.4); Platelet Count 182 10^3/uL (130-400); Red Blood Cell Count 3.69 10^6/uL (4.70-6.10); Red Cell Dist. Width 14.6 % (11.5-14.5); White Blood Cell Count 10.6 10^3/uL (4.8-10.8)
[2024-02-02] MEDS: LOW STRENGTH ASPIRIN 81 MG PO (07:20)
[2024-02-02 07:35] VITALS: BP 125/61
[2024-02-02 07:46] LABS: Glucose - Point of Care 170 mg/dl (70-99)
--- NOTE | 2024-02-02 08:05 | PTCARENOTE ---
Patient refused both insulins this AM. Patient education provided. Patient refused education. Dr. Henry made aware. Care ongoing at this time.
[2024-02-02 08:39] LABS: Blood Urea Nitrogen 19 mg/dl (9-20); Calcium 8.3 mg/dl (8.4-10.2); Carbon Dioxide 19 mmol/L (22-30); Chloride 100 mmol/L (98-107); Estimated Creatinine Clearance 115 ml/min; Glucose 153 mg/dl (70-99); Magnesium 2.2 mg/dl (1.6-2.3); Phosphorus 3.5 mg/dl (2.5-4.5); Potassium 4.8 mmol/L (3.5-5.1); Sodium 134 mmol/L (135-145); eGFR > 60.00
[2024-02-02] MEDS: TOPROL XL 100 MG PO ×2 (08:49→16:20)
[2024-02-02] MEDS: DILAUDID 1 MG IV ×3 (08:50→21:52)
[2024-02-02] MEDS: CYMBALTA DELAYED RELEASE 30 MG PO ×2 (08:50→16:20)
[2024-02-02] MEDS: FARXIGA 10 MG PO (08:50)
[2024-02-02 10:30] VITALS: BP 100/59; BP 91/56; PULSE 109; O2SAT 92
--- NOTE | 2024-02-02 11:09 | W.PN.ORTHO ---
Today's Communication / Plan
-
53-year-old male postoperative day 1 right hip cephalomedullary nail fixation with Dr. Cerrato
-Reports moderate pain; continue current pain regimen
-PT/OT; weightbearing as tolerated to right lower extremity with assist devices as indicated.
-Discharge planning
-Diet per primary
-May resume baseline aspirin and Xarelto for DVT prophylaxis. Early mobility and sequential compressive devices to lower leg.
-Orthopedic surgery will continue to follow
Assessment
.
Distal Motor Intact: Yes
Dressing:
Clean, dry and intact.
Plan
.
Surgery / Date: 02/01/[address] Cerrato
Activity:
Out of bed.
PT/OT
Subjective
.
.:
Patient resting comfortably.
Vital Signs and Labs
.
Vital Signs and Labs:
Lab Results
02/02/24 06:25
02/02/24 06:25
Temp Pulse Resp BP Pulse Ox
98.0 F 103 18 125/61 96
02/02/24 07:35 02/02/24 07:35 02/02/24 07:35 02/02/24 07:35 02/02/24 07:35
PT 14.6 Sec (11.4-14.6) 01/31/24 19:15
INR 1.16 01/31/24 19:15
[2024-02-02 11:15] VITALS: BP 113/57
[2024-02-02 11:28] LABS: Glucose - Point of Care 267 mg/dl (70-99)
[2024-02-02] MEDS: BENTYL 10 MG PO ×3 (12:24→21:28)
[2024-02-02 12:39] VITALS: BP 100/59; BP 91/56; PULSE 109; O2SAT 92
--- NOTE | 2024-02-02 13:01 | PTCARENOTE ---
Patient refused [address] Henry made aware. Care ongoing at this time.
--- NOTE | 2024-02-02 13:01 | PTCARENOTE ---
Dr. Henry made aware of patients 1600 cc urine output in the past 6 hours. New orders placed. Care ongoing at this time.
[2024-02-02] MEDS: GLUCOTROL 5 MG PO (14:10)
[2024-02-02] MEDS: ADDERALL 20 MG PO (14:10)
[2024-02-02 15:35] VITALS: BP 130/65
[2024-02-02 16:26] LABS: Glucose - Point of Care 208 mg/dl (70-99)
--- NOTE | 2024-02-02 16:39 | PTCARENOTE ---
Patient refused [address] Henry made aware. Care ongoing at this time.
[2024-02-02] MEDS: LIPITOR 80 MG PO (17:11)
[2024-02-02] MEDS: XARELTO 20 MG PO (17:11)
[2024-02-02] MEDS: ENTRESTO 49 MG/51 MG 1 TAB PO (17:53)
[2024-02-02 21:32] LABS: Glucose - Point of Care 260 mg/dl (70-99)
[2024-02-02] MEDS: TYLENOL 650 MG PO (23:02)
[2024-02-02 23:30] VITALS: BP 109/59
[2024-02-03] VITALS (7 sets, daily range): BP systolic 86–111; BP diastolic 48–57; PULSE 75; O2SAT 95; BMI 38.0
--- NOTE | 2024-02-03 02:04 | PTCARENOTE ---
pt declines repositioning as he is able to move independently in bed.
[2024-02-03] MEDS: DILAUDID 1 MG IV ×4 (04:23→21:41)
[2024-02-03] MEDS: SYNTHROID 200 MCG PO (05:23)
[2024-02-03 06:14] LABS: Hematocrit 32.1 % (39.0-52.0); Hemoglobin 10.4 g/dL (13.0-18.0); Mean Corp Hgb Conc. 32.4 g/dL (33.0-37.0); Mean Corpuscular Hgb 28.4 pg (27.0-31.0); Mean Corpuscular Volume 87.7 fL (80.0-94.0); Mean Platelet Volume 11.2 fL (7.4-10.4); Platelet Count 184 10^3/uL (130-400); Red Blood Cell Count 3.66 10^6/uL (4.70-6.10); Red Cell Dist. Width 14.5 % (11.5-14.5); White Blood Cell Count 10.8 10^3/uL (4.8-10.8)
[2024-02-03 06:57] LABS: Blood Urea Nitrogen 26 mg/dl (9-20); Calcium 8.7 mg/dl (8.4-10.2); Carbon Dioxide 19 mmol/L (22-30); Chloride 101 mmol/L (98-107); Estimated Creatinine Clearance 115 ml/min; Glucose 191 mg/dl (70-99); Magnesium 2.5 mg/dl (1.6-2.3); Potassium 4.8 mmol/L (3.5-5.1); Sodium 134 mmol/L (135-145); eGFR > 60.00
[2024-02-03 07:31] LABS: Glucose - Point of Care 197 mg/dl (70-99)
[2024-02-03] MEDS: CYMBALTA DELAYED RELEASE 30 MG PO ×2 (08:11→17:22)
[2024-02-03] MEDS: BENTYL 10 MG PO ×4 (08:11→21:42)
[2024-02-03] MEDS: ENTRESTO 49 MG/51 MG 1 TAB PO (08:11)
[2024-02-03] MEDS: ADDERALL 20 MG PO ×2 (08:11→12:36)
[2024-02-03] MEDS: GLUCOTROL 5 MG PO ×2 (08:12→17:23)
[2024-02-03] MEDS: TOPROL XL 100 MG PO ×2 (08:12→17:21)
[2024-02-03] MEDS: LOW STRENGTH ASPIRIN 81 MG PO (08:12)
[2024-02-03] MEDS: FARXIGA 10 MG PO (08:12)
[2024-02-03] MEDS: FLUSH (NSS) 2 FLUSH IV ×2 (08:43→17:24)
--- NOTE | 2024-02-03 09:26 | W.PN.ORTHO ---
Today's Communication / Plan
-
Appreciate the efforts of the primary medical team, continue treatment
Appreciate CM assistance with Dispo
PT/OT, weightbearing as tolerated to right lower extremity with assist devices as indicated.
Dressings to remain 2 weeks
Baseline aspirin and Xarelto for DVT prophylaxis. Early mobility and sequential compressive devices to lower leg.
Outpatient Ortho follow-up in [address] Cerrato's team
Assessment
.
Distal Motor Intact: Yes
Dressing:
Clean, dry and intact. Aquacel and gauze dressing in place right thigh
Assessment:
Right hip gamma nail
Overall doing/feeling well
Calf soft, nontender
Plan
.
Surgery / Date: 02/01/[address] Cerrato
DVT Prophylaxis: Other (Xarelto)
Activity:
Out of bed. May be WBAT RLE in prosthesis (Hx BKA) if safe
PT/OT
Discharge Plan: Other (per CM)
Subjective
.
.:
Patient resting comfortably in bed this AM. Mild right hip pain
Vital Signs and Labs
.
Vital Signs and Labs:
Lab Results
02/03/24 05:40
02/03/24 05:40
Temp Pulse Resp BP Pulse Ox
98.8 F 73 14 111/56 99
02/03/24 07:29 02/03/24 08:12 02/03/24 07:29 02/03/24 08:12 02/03/24 07:29
PT 14.6 Sec (11.4-14.6) 01/31/24 19:15
INR 1.16 01/31/24 19:15
--- NOTE | 2024-02-03 10:18 | PTCARENOTE ---
pt continues to refuse insulin administration. all oral medications provided per MAR. will continue to monitor bedside glucose levels.
--- NOTE | 2024-02-03 12:16 | W.PN.HOSP.TC ---
Today's Communication/Plan
-
Monitor BP
Start dispo
home vn? refusing SNF vs. acute rehab
Assessment / Plan
Assessment / Plan
Physical Exam
General: Well Developed, Well Nourished and No Apparent Distress
HEENT: NormoCephalic, Moist mucous membranes and Atraumatic
Respiratory: Clear
Cardiac: S1/S2 and Regular Rhythm; No Murmur or Rub
GI: Soft, Non Tender, Non Distended and Normal Bowel Sounds; No Organomegaly
Musculoskeletal: No Clubbing, No Cyanosis and No Edema. Right BKA
Skin: No Rash
Neuro: AOx3
53MCAD, HFmrEF, diabetes, hyperlipidemia, peripheral arterial disease, rt BKA, hypertension, hyperlipidemia, neuropathy, hypothyroidism, anemia, obesity, ambulates with prosthetic at baseline here for fall right hip fracture
# Acute right intertrochanteric proximal femur fracture with mild displacement
ortho eval appreciated
-right hip fx s/p ORIF 01/31 internal fixation with cephalomedulary nail
-PT/OT; weightbearing as tolerated to right lower extremity with assist devices as indicated.
-ok to resume home aspirin and Xarelto
CAD
-Continue aspirin, statin
-Patient states his ordnance equipment worker (Dr Moon) ordered Xarelto but he does not know why, denies history of A-fib
Chronic HFmrEF
-Continue dapagliflozin
-Continue Home Entresto
-Patient refusing his home Lasix 40 mg BID at this time. Appears euvolemic at this time. Monitor off. Monitored by PCP and recommend to f/u upon discharge.
Peripheral arterial disease status post right BKA
Essential hypertension
-Continue metoprolol
Type 2 diabetes
-Continue dapagliflozin
-patient refusing his home insulin citing poor oral intake appetite
-Sugars relatively well controlled at this time without insulin correction
-notably high insulin regimen at home likely d/t diet. Per pt, poc well controlled at home on insulin regimen as with increase appetite at home.
-A1c 6.5
-Home glipizide resumed at reduced dose for now, 5 mg daily titrated up to 5 mg BID
Abd pain chronically on bentyl
-bentyl resumed
Narcolepsy
-home adderall resumed
Hyperlipidemia
Peripheral neuropathy/phantom pain
-Continue duloxetine
-Continue hydrocodone/Tylenol, prn Dilaudid
Hypothyroidism
-Continue levothyroxine
Chronic anemia
Obesity
PT/OT appreciated Acute vs SNF rehab. Refusing inpatient and stating to go to [facility] [place] rehab.
Full code
DVT prophylaxis Xarelto
Anticipated Discharge: Within 24 hours
Subjective/Interval History
-
Date of Service: February 03, 2024
worked with rehab earlier today
did well
BP was low earlier which improved-asymptomatic
Objective Data
-
Labs:
Laboratory Results
02/03/24
05:40
WBC 10.8
Hgb 10.4 L
Hct 32.1 L
Plt Count 184
Sodium 134 L
Potassium 4.8
Chloride 101
Carbon Dioxide 19 L
BUN 26 H
Creatinine 0.9
Glucose 191 H
Calcium 8.7
Vital Signs:
Vital Signs
Temp Pulse Resp BP Pulse Ox
98.8 F 73 14 111/56 99
02/03/24 07:29 02/03/24 08:12 02/03/24 07:29 02/03/24 08:12 02/03/24 08:10
I&O
02/02/24 02/03/24 02/04/24
06:59 06:59 06:59
Intake Total 1520 / 1520 2760 / 2760
Output Total 1150 / 1150 3800 / 3800 700 / 700
Balance 370 / 370 -1040 / -1040 -700 / -700
Data Reviewed
-
Total Time Spent with Patient (in minutes): 57
[2024-02-03] MEDS: NORCO 7.5/325 1 TABLET PO (12:41)
--- NOTE | 2024-02-03 15:03 | CM ---
Reviewed the chart notes. PT recommending Acute Rehab. Referral sent to [facility]. CM continues to be available to patient/family and is monitoring medical plan for needs at discharge.
Plan: Discharge hopefully to Acute Rehab.
[2024-02-03 16:37] LABS: Glucose - Point of Care 255 mg/dl (70-99)
[2024-02-03] MEDS: LIPITOR 80 MG PO (17:21)
[2024-02-03] MEDS: XARELTO 20 MG PO (17:21)
[2024-02-03] MEDS: ENTRESTO 49 MG/51 MG PO (17:22)
[2024-02-03 22:10] LABS: Glucose - Point of Care 209 mg/dl (70-99)
[2024-02-04] MEDS: SYNTHROID 200 MCG PO (05:45)
[2024-02-04 07:36] VITALS: BP 101/48
[2024-02-04 07:42] LABS: Glucose - Point of Care 184 mg/dl (70-99)
[2024-02-04] MEDS: ENTRESTO 49 MG/51 MG PO (07:42)
[2024-02-04] MEDS: ADDERALL 20 MG PO (08:01)
[2024-02-04] MEDS: BENTYL 10 MG PO (08:01)
[2024-02-04] MEDS: TOPROL XL 100 MG PO (08:01)
[2024-02-04] MEDS: CYMBALTA DELAYED RELEASE 30 MG PO (08:02)
[2024-02-04] MEDS: GLUCOTROL 5 MG PO (08:02)
[2024-02-04] MEDS: FARXIGA 10 MG PO (08:02)
[2024-02-04] MEDS: LOW STRENGTH ASPIRIN 81 MG PO (08:02)
[2024-02-04] MEDS: DILAUDID 1 MG IV (08:07)
[2024-02-04] MEDS: FLUSH (NSS) 2 FLUSH IV (08:08)
[2024-02-04 09:26] LABS: Hematocrit 30.9 % (39.0-52.0); Hemoglobin 10.3 g/dL (13.0-18.0); Mean Corp Hgb Conc. 33.3 g/dL (33.0-37.0); Mean Corpuscular Hgb 29.5 pg (27.0-31.0); Mean Corpuscular Volume 88.5 fL (80.0-94.0); Mean Platelet Volume 11.1 fL (7.4-10.4); Platelet Count 163 10^3/uL (130-400); Red Blood Cell Count 3.49 10^6/uL (4.70-6.10); Red Cell Dist. Width 14.6 % (11.5-14.5); White Blood Cell Count 10.5 10^3/uL (4.8-10.8)
--- NOTE | 2024-02-04 09:52 | CM ---
Reviewed the chart notes and spoke with the patient and his spouse at the bedside. Patient is declining Acute Rehab or SNF at this time. Per patient, he plans to do outpatient therapy with [facility] in [place]. CM continues to be available to
patient/family and is monitoring medical plan for needs at discharge.
Plan: Discharge to home when medically stable with outpatient PT follow-up.
[2024-02-04 09:53] LABS: Blood Urea Nitrogen 29 mg/dl (9-20); Calcium 8.4 mg/dl (8.4-10.2); Carbon Dioxide 18 mmol/L (22-30); Chloride 102 mmol/L (98-107); Estimated Creatinine Clearance > 125 ml/min; Glucose 141 mg/dl (70-99); Magnesium 2.4 mg/dl (1.6-2.3); Phosphorus 3.4 mg/dl (2.5-4.5); Potassium 4.4 mmol/L (3.5-5.1); Sodium 136 mmol/L (135-145); eGFR > 60.00
--- NOTE | 2024-02-04 10:31 | W.PN.HOSP.TC ---
Today's Communication/Plan
-
dc home
OP rehab
Assessment / Plan
Assessment / Plan
Physical Exam
General: Well Developed, Well Nourished and No Apparent Distress
HEENT: NormoCephalic, Moist mucous membranes and Atraumatic
Respiratory: Clear
Cardiac: S1/S2 and Regular Rhythm; No Murmur or Rub
GI: Soft, Non Tender, Non Distended and Normal Bowel Sounds; No Organomegaly
Musculoskeletal: No Clubbing, No Cyanosis and No Edema. Right BKA noted.
Skin: No Rash
Neuro: AOx3
53MCAD, HFmrEF, diabetes, hyperlipidemia, peripheral arterial disease, rt BKA, hypertension, hyperlipidemia, neuropathy, hypothyroidism, anemia, obesity, ambulates with prosthetic at baseline here for fall right hip fracture
# Acute right intertrochanteric proximal femur fracture with mild displacement
ortho eval appreciated
-right hip fx s/p ORIF 01/31 internal fixation with cephalomedulary nail
-PT/OT; weightbearing as tolerated to right lower extremity with assist devices as indicated.
-ok to resume home aspirin and Xarelto
CAD
-Continue aspirin, statin
-Patient states his chief nuclear medicine technologist (Dr Moon) ordered Xarelto but he does not know why, denies history of A-fib
Chronic HFmrEF
-Continue dapagliflozin
-Continue Home Entresto
-Patient refusing his home Lasix 40 mg BID at this time. Monitored by PCP and recommend to f/u upon discharge.
Peripheral arterial disease status post right BKA
Essential hypertension
-Continue metoprolol
Type 2 diabetes
-Continue dapagliflozin
-patient refusing his home insulin citing poor oral intake appetite in hospital
-Sugars relatively well controlled at this time without insulin correction
-notably high insulin regimen at home likely d/t diet. Per patient, poc well controlled at home on insulin regimen as with increase appetite at home.
-A1c 6.5
-Home glipizide titrated up to 5 mg BID while here. States at home sugar controlled with 10mg glipizide and can resume as suspected poor dietary indiscretion at home.
Abd pain chronically on bentyl
-bentyl resumed
Narcolepsy
-home adderall resumed
Hyperlipidemia
Peripheral neuropathy/phantom pain
-Continue duloxetine
-Continue hydrocodone/Tylenol, prn Dilaudid
Hypothyroidism
-Continue levothyroxine
Chronic anemia
Obesity
PT/OT appreciated Acute vs SNF rehab. Refusing inpatient and stating to go to [facility]. refusing inpatient rehab once again. at bedside and agrees with patient to take him with OP
Full code
DVT prophylaxis Xarelto
More than 30 minutes spent in discharge including
Final examination of the patient
Summarizing hospital stay
Instructions for continuing care to all relevant caregivers
Preparation of discharge records, prescriptions, and referral forms
Total time spent (in minutes): 50
Anticipated Discharge: Today
Subjective/Interval History
-
Date of Service: February 04, 2024
Feeling better
had bm
refusing inpatient rehab
at bedside and agrees with patient
Objective Data
-
Labs:
Laboratory Results
02/04/24
08:59
WBC 10.5
Hgb 10.3 L
Hct 30.9 L
Plt Count 163
Sodium 136
Potassium 4.4
Chloride 102
Carbon Dioxide 18 L
BUN 29 H
Creatinine 0.8
Glucose 141 H
Calcium 8.4
Vital Signs:
Vital Signs
Temp Pulse Resp BP Pulse Ox
98.6 F 75 19 101/48 96
02/04/24 07:36 02/04/24 08:01 02/04/24 07:36 02/04/24 08:01 02/04/24 07:36
I&O
02/03/24 02/04/24 02/05/24
06:59 06:59 06:59
Intake Total 2760 / 2760 1140 / 1140
Output Total 3800 / 3800 2750 / 2750
Balance -1040 / -1040 -1610 / -1610
--- NOTE | 2024-02-04 10:39 | W.DCSUMMARY ---
Discharge Summary
Discharge Data
Date of Admission: 01/31/24
Date of Discharge: 02/04/24
-
Pending Results: No
Hospital Course
53-year-old male past medical history of chronic HFrEF, diabetes, hyperlipidemia, peripheral arterial disease status post right BKA who presented with a fall and was found to have Acute right intertrochanteric proximal femur fracture with mild
displacement. s/p ORIF 01/31 internal fixation with cephalomedulary nail by orthopedic. Postprocedure patient was restarted on his home regimen of aspirin Xarelto for DVT prophylaxis. PT and OT evaluated patient and recommended rehab which patient
refused and stated he will do outpatient rehab. Patient was found to be diabetic on high insulin regimen as outpatient. Patient stated he is with significant decreased appetite and the hospital and at home his sugars are well-controlled with his
current outpatient aggressive diabetic regimen of high-dose of glimepiride and insulin. Patient also with lower extremity edema and recommend to restart his home regimen of Lasix. Patient refusing states he will discuss this with his outpatient
primary doctor who is managing his diuretics. Recommend to follow-up outpatient with orthopedic for postop follow-up.
Discharge Plan
-
Patient Disposition: Home with Home Care
Discharge Diagnosis/Procedures: Acute right intertrochanteric proximal femur fracture with mild displacement
s/p ORIF 01/31 internal fixation with cephalomedulary nail
Condition: Fair
Diet: 2 Gram Sodium, Diabetic, Carb Controlled and Restrict fluids to 48 oz
Activity: As tolerated and With Walker
Additional Activity: May WB with use of prosthesis if safe (R BKA)
Bathing Restrictions: OK to Shower
Activity Restrictions/Additional Instructions:
Dressings to remain 2 weeks
Hold insulin if with poor appetite at home.
Referrals:
Obi Shin DO [Family Provider] - in less than 1 week
Ace Watkins PA-C [Specified Professional Personl] - in one month
Prescriptions:
Continued
aspirin 81 MG tablet,delayed release (DR/EC)
81 mg PO DAILY
dextroamphetamine-amphetamine 20 mg Tablet
20 mg PO BID@0800,1200
Rx Instructions:
20 mg orally at 08:00 and 12:00
levothyroxine 200 mcg Tablet
200 mcg PO DAILY AT 0700
glipizide 10 mg Tablet
10 mg PO MEALS
dapagliflozin propanediol [Farxiga] 10 mg Tablet
10 mg PO DAILY
Novolin 70/30 U-100 Insulin 100 unit/mL (70-30) suspension
90 unit SC BID
Rx Instructions:
90 unit subcutaneously at 0800 and 1700
Novolin R Regular U100 Insulin 100 unit/mL solution
30 sliding scale dose SC AC
atorvastatin [Lipitor] 80 mg tablet
80 mg PO QPM
furosemide 40 mg Tablet
40 mg PO BID@0800,1600 Qty: 60 0RF
dicyclomine 10 MG capsule
10 mg PO QID Qty: 0 0RF
zolpidem [Ambien] 10 mg Tablet
10 mg PO HS
hydrocodone-acetaminophen 10-325 mg Tablet
1 tab PO QID PRN (Reason: pain)
metoprolol succinate 50 mg tablet extended release 24 hr
See Rx Instructions .ROUTE .COMPLEX
Rx Instructions:
100 mg orally at 0800 and 1700
potassium chloride 20 mEq tablet extended release
10 meq PO TID
Xarelto 20 mg Tablet
20 mg PO QPM
hydromorphone [Dilaudid] 8 mg Tablet
See Rx Instructions .ROUTE .COMPLEX
Rx Instructions:
8 mg orally at 1200
Entresto 49-51 mg Tablet
See Rx Instructions .ROUTE .COMPLEX
Rx Instructions:
1 tab orally at 08:00 and 17:00
duloxetine 30 mg Capsule,Delayed Release(Dr/Ec)
See Rx Instructions .ROUTE .COMPLEX
Rx Instructions:
30 mg orally at 0800 and 1700
Discharge Orders:
Discharge Patient (As Directed); Ordered 02/04/24
Ordered By: Micha Novoa
Discharge Date and Time
Discharge Date/Time: 02/04/24 12:17
Print Language: WELSH
--- NOTE | 2024-02-04 10:49 | CM ---
IMM reviewed and placed on the chart.
[2024-02-04 10:55] VITALS: BP 94/61
== END 2024-02-04 12:17 | disposition home or self-care (01) | DRG 481 ==
LOC: 2 SOUTH 20:22
PROVIDERS: Internal Medicine; Physician Assistant; ADMITTING PHYSICIAN Hospitalist; ATTENDING PHYSICIAN Hospitalist; CONSULT PHYSICIAN Orthopaedic Surgery; EMERGENCY PHYSICIAN Emergency Medicine; FAMILY PHYSICIAN Family Medicine
PROC: 0QS636Z Reposition Right Upper Femur with Intramedullary Internal Fixation Device, Percutaneous Approach (ICD-10-PCS; 2024-02-01)
DX: S72.141A Displaced intertrochanteric fracture of right femur, initial encounter for closed fracture (principal); I50.22 Chronic systolic (congestive) heart failure; I11.0 Hypertensive heart disease with heart failure; E11.51 Type 2 diabetes mellitus with diabetic peripheral angiopathy without gangrene; E11.42 Type 2 diabetes mellitus with diabetic polyneuropathy; E03.9 Hypothyroidism, unspecified; E78.00 Pure hypercholesterolemia, unspecified; G47.30 Sleep apnea, unspecified; G47.419 Narcolepsy without cataplexy; G54.6 Phantom limb syndrome with pain; I25.10 Atherosclerotic heart disease of native coronary artery without angina pectoris; D63.8 Anemia in other chronic diseases classified elsewhere; W10.9XXA Fall (on) (from) unspecified stairs and steps, initial encounter; E66.9 Obesity, unspecified; Z68.38 Body mass index [BMI] 38.0-38.9, adult; Z79.82 Long term (current) use of aspirin; Z79.84 Long term (current) use of oral hypoglycemic drugs; Z79.890 Hormone replacement therapy; Z79.01 Long term (current) use of anticoagulants; Z79.4 Long term (current) use of insulin; Z79.891 Long term (current) use of opiate analgesic; Z98.84 Bariatric surgery status; Z91.041 Radiographic dye allergy status; Z89.511 Acquired absence of right leg below knee
CPT/HCPCS: 73502; 73552; 73560; 76000; 80048; 80053; 82962; 83036; 83735; 84100; 85025; 85027; 85610; 85730; 86850; 86900; 86901; 96374; 97163; 97167; 97530; 99284; C1713; C1769

== ENCOUNTER 2024-03-04 18:11 | Emergency (ER) | payer MEDICARE, SELFPAY ==
--- NOTE | 2024-03-04 19:48 | ED.GENMED ---
History of Present Illness
General
Chief Complaint: Skin Problem
Source: patient
Exam Limitations: none
Time Seen by Provider: 03/04/24 19:30
Nursing documentation reviewed up to this point in time: agreed with
History of Present Illness
History of Present Illness:
Patient status post right hip repair 4 weeks ago at [facility], presents to ED secondary to 2-day history of clear drainage, associated with swelling and redness, along lateral aspect of his right knee. Patient states that after procedure,
he noted puncture mynor on either side of his knee. Puncture mynor on the medial aspect has healed completely. Unfortunately, puncture mynor on the lateral aspect has never fully closed. Denies fever or chills. Denies nausea or vomiting. Denies
new trauma. Patient does report decreased appetite over the past 24 hours.
Past History
Past History
ED Past Medical History: CAD, Cancer, HTN, Hypercholesterolemia, IDDM, NIDDM, Other (Narcolepsy, sleep apnea) and Other (Gastric bypass, asthma, sleep apnea, hypothyroidism,)
ED Past Surgical History: Orthopedic (Distal toe amputation right second and third toes) and Other (Gastric bypass, right digit amputation, partial thyroidectomy)
Social History
Tobacco: Non-smoker
Alcohol: None
Drug: None
Personal:
Living: with family
Employment: Employed
Family History
Family History: Diabetes
Review of Systems
Review of Systems
Allergies reviewed?: Yes
All Other Systems: ROS reviewed and negative except as documented in HPI and ROS
Constitutional: Reports no symptoms; Denies fever or chills
ABD/GI: Reports no symptoms
Musculoskeletal: Reports no symptoms
Skin: Reports other (leg redness/swelling)
Neurological: Reports no symptoms
Phy Exam
Physical Exam
Physical Exam:
Physical Exam
General: no apparent distress, not acutely ill. afebrile
Head: nc/at. eomi
Neck: supple. no meningeal signs.
Neuro: alert and oriented. no focal neurological deficits
Skin: an approx 1mm area of erythema/swelling noted lateral to right patella with scab formation. no active drainage noted
Psychiatric: well kept. interactive and cooperative
Extremities: no edema. no calf tenderness
Course
Orders/Labs/Results
Orders:
Orders
03/04/24 20:04
Complete Blood Count/With Diff Urgent
Comprehensive Metabolic Panel Urgent
Lactic Acid Q4H
Comment: CANCEL 2nd LACTIC ACID IF 1st LACTIC ACID IS LESS THAN 2
03/04/24 21:41
CR Femur - Right Min 2 Vw Urgent
Comment:
Reason For Exam: s/p hip surgery with swelling/redness distal thigh
03/04/24 22:44
Cephalexin Monohydrate [Keflex] 500 mg PO NOW STA
Abnormal Lab Results
03/04/24
20:04
RBC 4.42 L 10^6/uL
(4.70-6.10)
Hgb 12.5 L g/dL
(13.0-18.0)
Hct 38.5 L %
(39.0-52.0)
MCHC 32.5 L g/dL
(33.0-37.0)
RDW 14.6 H %
(11.5-14.5)
MPV 11.1 H fL
(7.4-10.4)
Eosinophils % 6.7 H %
(0-6)
BUN 23 H mg/dl
(9-20)
Alkaline Phosphatase 170 H U/L
(38-126)
03/04/24 20:04
03/04/24 20:04
Vital Signs
Initial and Last Documented VS:
Initial Vital Signs
Temp Pulse Resp
99.2 F 85 16
03/04/24 18:12 03/04/24 18:12 03/04/24 18:12
Last Documented Vital Signs
Temp Pulse Resp BP Pulse Ox
98.2 F 71 16 125/66 99
03/04/24 20:15 03/04/24 20:15 03/04/24 20:15 03/04/24 21:49 03/04/24 21:49
MDM/Problems Addressed
MDM/Problems Addressed:
Patient with an unremarkable workup in ED, including blood work and x-ray. Patient remains afebrile, hemodynamically stable, and nontoxic-appearing.
Discussed with on-call orthopedic surgeon, Dr. Vaca, who agrees with plan to discharge patient on short course of antibiotics, along with outpatient follow-up with his orthopedic surgeon, Dr. Cerrato.
*Critical Care Note
Total Time (30-74mins, 75-104mins- exclusive of procedures): Not Applicable
ED Attending Note
-
Portions of this chart may have been created with voice recognition software.� Occasional wrong word or��sound alike� substitutions may have occurred due to the inherent limitations of voice recognition software.
Discharge Plan
Departure
Patient Disposition: Home (Routine Discharge)
Date of Disposition: 03/04/24
Time of Disposition: 22:49
Patient with high blood pressure during this ER visit?: Yes
Discharge Problem:
Postoperative wound cellulitis
Instructions: Cellulitis (Skin Infection), Adult (DC)
Prescriptions:
New
cephalexin 500 mg capsule
500 mg PO Q8H Qty: 20 0RF
No Action
aspirin 81 MG tablet,delayed release (DR/EC)
81 mg PO DAILY
dextroamphetamine-amphetamine 20 mg Tablet
20 mg PO BID@0800,1200
Rx Instructions:
20 mg orally at 08:00 and 12:00
levothyroxine 200 mcg Tablet
200 mcg PO DAILY AT 0700
glipizide 10 mg Tablet
10 mg PO MEALS
dapagliflozin propanediol [Farxiga] 10 mg Tablet
10 mg PO DAILY
Novolin 70/30 U-100 Insulin 100 unit/mL (70-30) suspension
90 unit SC BID
Rx Instructions:
90 unit subcutaneously at 0800 and 1700
Novolin R Regular U100 Insulin 100 unit/mL solution
30 sliding scale dose SC AC
atorvastatin [Lipitor] 80 mg tablet
80 mg PO QPM
furosemide 40 mg Tablet
40 mg PO BID@0800,1600 Qty: 60 0RF
dicyclomine 10 MG capsule
10 mg PO QID Qty: 0 0RF
zolpidem [Ambien] 10 mg Tablet
10 mg PO HS
hydrocodone-acetaminophen 10-325 mg Tablet
1 tab PO QID PRN (Reason: pain)
metoprolol succinate 50 mg tablet extended release 24 hr
See Rx Instructions .ROUTE .COMPLEX
Rx Instructions:
100 mg orally at 0800 and 1700
potassium chloride 20 mEq tablet extended release
10 meq PO TID
Xarelto 20 mg Tablet
20 mg PO QPM
hydromorphone [Dilaudid] 8 mg Tablet
See Rx Instructions .ROUTE .COMPLEX
Rx Instructions:
8 mg orally at 1200
Entresto 49-51 mg Tablet
See Rx Instructions .ROUTE .COMPLEX
Rx Instructions:
1 tab orally at 08:00 and 17:00
duloxetine 30 mg Capsule,Delayed Release(Dr/Ec)
See Rx Instructions .ROUTE .COMPLEX
Rx Instructions:
30 mg orally at 0800 and 1700
Referrals:
Obi Shin DO [Family Provider] -
Suraj Cerrato MD [Active] -
Activity Restrictions/Additional Instructions:
As discussed, please follow-up with your orthopedic surgeon for further evaluation and treatment. Your prescription has been sent electronically to [facility] pharmacy in [place].
Interventions
Interventions:
*Risk Screen - Suicide Last Done: 03/04/24 20:04
*General Assessment Last Done: 03/04/24 18:12
*Neglect/Abuse Screening Last Done: 03/04/24 18:12
ED- Fall Risk Assessment Last Done: 03/04/24 21:50
*ED COVID-19 Vaccine History Last Done: 03/04/24 21:50
Discharge Date and Time
Print Language: THAI
[2024-03-04 20:15] VITALS: BP 106/66
[2024-03-04 20:16] LABS: % Basophils 0.7 % (0-2); % Eosinophils 6.7 % (0-6); % Immature Granulocytes 0.1 % (0-0.5); % Lymphocytes 26.7 % (20.5-51.1); % Monocytes 8.6 % (1.7-9.3); % Neutrophils 57.2 % (42.2-75.2); Absolute Basophils 0.1 10^3/uL (0-0.2); Absolute Eosinophils 0.5 10^3/uL (0-0.7); Absolute Monocytes 0.6 10^3/uL (0.1-0.6); Absolute Neutrophils 4.2 10^3/uL (1.4-6.5); Hematocrit 38.5 % (39.0-52.0); Hemoglobin 12.5 g/dL (13.0-18.0); Mean Corp Hgb Conc. 32.5 g/dL (33.0-37.0); Mean Corpuscular Hgb 28.3 pg (27.0-31.0); Mean Corpuscular Volume 87.1 fL (80.0-94.0); Mean Platelet Volume 11.1 fL (7.4-10.4); Nucleated Red Blood Cells % 0 % (-); Platelet Count 282 10^3/uL (130-400); Red Blood Cell Count 4.42 10^6/uL (4.70-6.10); Red Cell Dist. Width 14.6 % (11.5-14.5); White Blood Cell Count 7.3 10^3/uL (4.8-10.8)
[2024-03-04 20:24] LABS: Lactic Acid 1.5 mmol/L (0.7-2.0)
[2024-03-04 20:34] LABS: ALT (SGPT) 18 U/L (0-50); AST (SGOT) 23 U/L (17-59); Albumin 4.7 g/dl (3.5-5.0); Alkaline Phosphatase 170 U/L (38-126); Blood Urea Nitrogen 23 mg/dl (9-20); Calcium 9.5 mg/dl (8.4-10.2); Carbon Dioxide 22 mmol/L (22-30); Chloride 106 mmol/L (98-107); Glucose 78 mg/dl (70-99); Potassium 4.5 mmol/L (3.5-5.1); Sodium 142 mmol/L (135-145); Total Bilirubin 0.6 mg/dl (0.2-1.3); Total Protein 8.1 g/dl (6.3-8.2); eGFR > 60.00
[2024-03-04 21:49] VITALS: BP 125/66
[2024-03-04] MEDS: KEFLEX 500 MG PO (22:58)
== END 2024-03-04 23:04 | disposition home or self-care (01) ==
LOC: EMR 18:11
PROVIDERS: EMERGENCY PHYSICIAN Emergency Medicine; FAMILY PHYSICIAN Family Medicine
DX: T81.41XA Infection following a procedure, superficial incisional surgical site, initial encounter (principal); L03.115 Cellulitis of right lower limb; E03.9 Hypothyroidism, unspecified; E11.9 Type 2 diabetes mellitus without complications; E78.00 Pure hypercholesterolemia, unspecified; G47.30 Sleep apnea, unspecified; I10 Essential (primary) hypertension; I25.10 Atherosclerotic heart disease of native coronary artery without angina pectoris; J45.909 Unspecified asthma, uncomplicated; Z79.4 Long term (current) use of insulin; Z98.84 Bariatric surgery status
CPT/HCPCS: 99284; 73552; 80053; 83605; 85025

== ENCOUNTER 2024-05-21 15:00 | Inpatient (IN) | payer MEDICARE, SELFPAY ==
[2024-05-18 13:44] VITALS: BMI 35.0
[2024-05-21] VITALS (9 sets, daily range): BP systolic 132–159; BP diastolic 68–86; BMI 35.0
[2024-05-21 16:00] LABS: Glucose - Point of Care 152 mg/dl (70-99)
[2024-05-21] MEDS: CELEBREX 200 MG PO (17:22)
[2024-05-21] MEDS: TYLENOL 1000 MG PO (17:23)
[2024-05-21 18:16] LABS: Glucose - Point of Care 132 mg/dl (70-99)
[2024-05-21 20:13] LABS: Glucose - Point of Care 111 mg/dl (70-99)
--- NOTE | 2024-05-21 21:31 | W.PN.UPDATE ---
Update Note
Progress Note Update
Patient s/p conversion rodding right femur for infection (surgery end 2130 01Jun 06) via Dr. Cerrato. Patient admitted under Dr. Cerrato. Home meds reconciled. Medical management consult placed to Dr. Patel (spoke to this evening). ID consult placed to
Dr. Turner (for likely 6 weeks of IV ABX- will speak to tomorrow). Spoke to Allen in the pharmacy who will be dosing Vanco and Cefepime based on CrCl. Patient to be half dosed with Xarelto starting tomorrow PM Jun 06 (10mg qd x 3 days)
before restarting full anticoagulation on Jun 06. Patient may be WBAT with device/prosthetic if comfortable. Appreciate CM working Dispo. Hopefully patient comfortable overnight with home pain meds and breakthrough orders.Pain issues overnight
(given chronic used of opioids) please contact [employer] customer experience professional.
--- NOTE | 2024-05-21 21:38 | OR.RPT ---
Operative Report
Operative Report
Orthopaedic Surgery Operative Note
DATE OF OPERATION: 05/21/2024
PREOPERATIVE DIAGNOSIS: History of right proximal femur fracture ORIF, concern for R proximal surgical site infection
POSTOPERATIVE DIAGNOSIS: Same
OPERATION PERFORMED: Right intertrochanteric hip fracture revision reduction and fixation with cephalomedulary nail, debridement and irrigation down to bone
SURGEON: Suraj Cerrato MD
PUNCHBOARD STUFFER: NA
ANESTHESIA: General
COMPLICATIONS: None.
ESTIMATED BLOOD LOSS: 400 mL.
DRAINS: None
SPECIMEN: Cultures x5
IMPLANTS:
Bautista Gamma Cephalomeduallary nail; short
[place] lag screw, 100 mm.
5.0 mm distal interlocking screw x1
INDICATIONS FOR PROCEDURE
53-year-old male with a history of right proximal femur fracture treated with ORIF and cephalomedullary nail by me about 3 months ago. He was doing well and was not having pain and then was noted to have some drainage from his distal incision site.
This was treated with oral antibiotics as a suture abscess. He continues to do well until he noted some drainage from his proximal incision site. The previously well-healed incision appeared to be gapping open. There was some fibrinous yellow
fluid and drainage. His inflammatory markers are elevated. Presentation was concerning for infection. 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 We discussed treatment options including observation oral antibiotics.
Given that it prior failed oral antibiotics, we discussed local I&D. We discussed if he had a local infection, we would need to treat the hardware as if it was at the very least compromise. Given that he was about 3 months from surgery, I did not
recommend complete removal of hardware given the likely continued healing of his fracture. His x-rays look good without displacement and with signs of consolidation but likely with remodeling. We discussed the option of I&D with gamma nail
exchange. MRI showed no deep collections. We reviewed the natural history of the problem, as well as the risks, benefits, and alternatives of various treatment options. Shared decision was to proceed with surgical treatment. The patient and family
understood the risks including, but were not limited to, bleeding, infection, failure to relieve pain, more pain than preop, damage to blood vessels and nerves, need for reoperation, mechanical failure of the implants, wound healing problems,
stiffness, instability, blood clot, pulmonary embolism, myocardial infarction, pneumonia, arrhythmia, CVA, and . All questions were answered, and informed consent was obtained.
PROCEDURE IN DETAIL: The patient was identified in the preoperative holding area. The operative limb was identified as the operative site and marked with my initials. The patient was transferred to the operating room. General anesthesia was
performed. The patient was transferred to the [facility] operative table. The patient was positioned in lateral position on beanbag. IV antibiotics and tranexamic acid were given. All bony prominences were well padded. The operative limb was
prepped and draped in the usual sterile fashion.
We performed a surgical timeout. The proximal incision site was outlined in the areas of erythema and signs of separation. The distal incisions were also outlined. A 15 blade scalpel was used to excise the prior incisions proximally and distally.
The distal interlocking screws identified distally and was removed without incident. Cultures were sent from this area. The proximal incision was extended and the prior incision as well as affected skin were ellipsed out. There was no deep
purulence encountered. Dissection was carried to the IT band which was split in line with curved Hanna scissors. A Charnley retractor was placed. The lateral lag screw was identified. Superficial and deep cultures were sent. The proximal aspect
of the paul was identified by splitting the abductor tendon in line with its fibers. This was done using fluoroscopy. Once the proximal nail was identified, the soft tissue was removed and the extraction device was fixed onto the paul. The lag
screw was removed. Fluoroscopy was used to ensure displacement of the fracture. Once the lag screw was removed, the paul was removed. Cultures were sent from a normal canal from the paul. A ball-tipped guidewire was passed on the femoral canal.
The femur was reamed along its length sequentially from a 10 to a 14 mm reamer. This helped remove endosteal fibrous tissue. The surgical sites were copiously irrigated with 9 L of sterile saline with hydrogen peroxide and onto the Betadine in
between sets of 3 L of saline. There is an area of what appeared to be fat necrosis along the proximal aspect of the proximal incision that was debrided. This was excisional debridement to bone with rongure and electrocautery.
Once the surgical field was thoroughly irrigated debrided and 5 deep and superficial cultures were sent, this surgical treatment donned new gown and gloves. The surgical site was prepped and new sterile drapes were placed. New surgical instruments
were available that were not previously used and set aside to be used after the irrigation and debridement. The short gamma nail was assembled on the back table. This was passed into the femoral canal and its depth was checked on fluoroscopy. A
lag screw was placed along the path of the prior lag screw. No displacement was noted on fluoroscopy. There was gentle compression placed on the lag screw. A proximal locking screw was placed. A distal interlocking screw was placed through the
guide. Final fluoroscopy shots were taken. Fracture alignment was unchanged and hardware was in appropriate position.
The deep abductor tendons were closed with 0 PDS. The IT band was closed with running 0 PDS. The IT band and distal incisions was closed with 2-0 PDS. The skin was closed in layers with 2-0 PDS in a running fashion deep in the deep dermal layer.
Interrupted 2-0 PDS's were placed in the more distal incisions. Skin eliazar were placed. Sterile dressings were applied. The patient was awoken from anesthesia without complication. Sponge and instrument counts were correct x2 at the end of the
case.
I was present and participated in the entire procedure. The patient was sent to the recovery room in stable condition.
Post operative plan:
WBAT
PT/OT
Pain control
Delirium prevention
DVT: resume factor X
Vanc/Zosyn pending cultures/ID; will likely need 6 week IV abx
Hospitalist consult given medical comorbidities
Valerio Cerrato MD
[2024-05-21 21:50] LABS: Glucose - Point of Care 154 mg/dl (70-99)
[2024-05-21] MEDS: DILAUDID 0.25 MG IV ×2 (22:05→22:26)
[2024-05-21 22:20] LABS: Hematocrit 38.1 % (39.0-52.0); Hemoglobin 11.9 g/dL (13.0-18.0)
[2024-05-21 22:46] LABS: ALT (SGPT) 22 U/L (0-50); AST (SGOT) 28 U/L (17-59); Albumin 3.5 g/dl (3.5-5.0); Alkaline Phosphatase 136 U/L (38-126); Blood Urea Nitrogen 12 mg/dl (9-20); Calcium 8.1 mg/dl (8.4-10.2); Carbon Dioxide 27 mmol/L (22-30); Chloride 99 mmol/L (98-107); Estimated Creatinine Clearance > 125 ml/min; Glucose 192 mg/dl (70-99); Potassium 5.3 mmol/L (3.5-5.1); Sodium 132 mmol/L (135-145); Total Bilirubin 0.7 mg/dl (0.2-1.3); Total Protein 6.2 g/dl (6.3-8.2); eGFR > 60.00
[2024-05-21] MEDS: VANCOCIN 540 MG IV (23:00)
--- NOTE | 2024-05-21 23:00 | CON.HOSP ---
Consultation
-
Date/Time Consultation Requested: 05/21/24 9:25 PM
Date/Time Consultation Performed: 05/21/24 11:00 PM
Requesting Provider: Jonnie Da Silva PA-C
Performing Provider: Drake Patel DO
Reason for Consultation: Med Management
Family Physician
-
Family Physician: INTERVIEWE UNKNOWN - PT NOT
Chief Complaint
-
R Hip Infection
History of Present Illness
Patient is a 53y M with PMH significant for DM-II, ASCVD, hypertension and prior R femur fracture who presents to for planned orthopedic surgery on the R hip / femur. Patient originally presented to ED on 01/31/24 after a fall at home. He was
found to have R femur fracture and underwent ORIF with intramedullary paul placement on 02/01/24. Patient reports that he has had ongoing issues since that time including redness and elevated inflammatory markers. After consultation with
Orthopedics, plan was for removal of intramedullary paul and replacement with exchange nail / femoral canal irrigation / debridement.
Patient tolerated that procedure well and was seen and examined in the PACU post-op.
He is awake and alert. He complains of pain in the R hip and the lower back at present.
He denies any recent illness, cough, fevers / chills, etc.
He denies any current chest pain, dyspnea, etc.
Medical History
Past Medical History
Additional Past Medical History:
DM-II with Neuropathy and Retinopathy
ASCVD / PAD
Thyroid Cancer
Depression
Obesity
Narcolepsy
Additional Past Surgical History:
Gastric Bypass
RLE Balloon Angioplasty
Right BKA
Right Femur ORIF (02/01/24)
Cataracts
Thyroidectomy
Social History
Tobacco: Non-smoker
Alcohol: None
Drug: None
Family History
Family History: Reviewed & Not Pertinent
Allergies / Home Medications
Allergies reflects when Allergies were last updated in [facility].
Home Medications with original date entered in [facility]
Allergy/Medication List:
Allergies
Allergy/AdvReac Type Severity Reaction Status Date / Time
Iodinated Contrast Media Allergy Anaphylaxis Verified 05/21/24 15:28
[Iodinated Contrast Media -
IV Dye]
Poultry Allergy Anaphylaxis Verified 05/21/24 15:28
Home Medications
aspirin 81 mg tablet,delayed release 81 mg PO DAILY Blood clot prevention/tx 08/30/17
dapagliflozin propanediol 10 mg tablet (Farxiga) 10 mg PO DAILY Diabetes 01/09/22
dextroamphetamine-amphetamine 20 mg tablet 20 mg PO BID@0800,1200 ADD 01/09/22
glipizide 10 mg tablet 10 mg PO TID Diabetes 01/09/22
levothyroxine 200 mcg tablet 200 mcg PO DAILY AT 0700 Thyroid 01/09/22
atorvastatin 80 mg tablet (Lipitor) 80 mg PO QPM High cholesterol 05/10/22
insulin human U-100 NPH-regulr 70-30 mix 100 unit/mL subcutaneous susp (Novolin 70/30 U-100 Insulin) 90 unit SC BID Diabetes 05/10/22
insulin regular human 100 unit/mL injection solution (Novolin R Regular U-100 Insulin) 30 sliding scale dose SC AC Diabetes 05/10/22
dicyclomine 10 mg capsule 10 mg PO QID Abdominal Pain #0 caps 05/22/22
furosemide 40 mg tablet 40 mg PO BID@0800,1600 Heart Failure #60 tabs 05/22/22
zolpidem 10 mg tablet (Ambien) 10 mg PO HS Sleep 07/02/22
hydrocodone 10 mg-acetaminophen 325 mg tablet 1 tab PO Q6H Pain 09/26/22
potassium chloride 20 mEq tablet,extended release 20 meq PO TID Electrolyte Repletion 09/26/22
rivaroxaban 20 mg tablet (Xarelto) 20 mg PO QPM Blood clot prevention/tx 09/26/22
hydromorphone 8 mg tablet (Dilaudid) 8 mg PO DAILY 12/19/22
duloxetine 30 mg capsule,delayed release 30 mg PO BID 07/23/23
sacubitril 49 mg-valsartan 51 mg tablet (Entresto) 1 tab PO BID 07/23/23
metoprolol succinate 100 mg tablet,extended release 24 hr 100 mg PO BID 05/14/24
Review of Systems
-
History Source: Patient
A 12 point Review of Systems was completed except as noted: Yes
Constitutional: Denies Fever or Chills
Respiratory: Denies Cough or Trouble Breathing
Cardiac: Denies Chest Pain or Palpitations
Abdomen/GI: Denies Abdominal Pain, Nausea, Vomiting or Diarrhea
: Denies Dysuria or Frequency
Musculoskeletal: Reports Joint Pain; Denies Edema
Neurological: Denies Dizzy or Headache
Psych: Denies Depression or Anxiety
Physical Exam
Vital Signs
Vital Signs
Temp Pulse Resp BP Pulse Ox
98.9 F 73 16 151/68 100
05/21/24 22:41 05/21/24 22:45 05/21/24 22:45 05/21/24 22:45 05/21/24 22:45
Physical Exam
General: Other (53y M in mild distress due to pain.)
HEENT: Moist Mucous Membranes and Other (Thick neck.)
Respiratory: Clear; Negative Wheezes, Rales or Rhonchi
Cardiac: S1/S2, Regular Rhythm and Murmur (II/ MK)
GI: Soft, Non Tender, Non Distended and Normal Bowel Sounds
Musculoskeletal: No Clubbing, No Edema and Other (Occlusive dressings in place lateral RLE from hip to knee. No surrounding erythema / induration. s/p R BKA.)
Neuro: AO x 3
Laboratory Results
-
Laboratory Results
05/21/24 22:14
05/21/24 22:14
Total Bilirubin 0.7 mg/dl (0.2-1.3) 05/21/24 22:14
AST 28 U/L (17-59) 05/21/24 22:14
ALT 22 U/L (0-50) 05/21/24 22:14
Alkaline Phosphatase 136 U/L (38-126) H 05/21/24 22:14
Impression / Plan
-
A/R: Patient is a 53y M with PMH significant for HFpEF, DM-II and PAD who presents to for removal of current hardware / exchange nail of the R femur.
Right Femur Prosthetic Joint Infection
- s/p intramedullary paul removal, femoral canal irrigation and debridement and exchange nail placement on 05/21/24.
- Post-op care per Ortho.
- WBAT with prosthetic if pain controlled.
- Continue current abx for now pending further ID input.
ASCVD / PAD
- Stable. Continue daily ASA.
- Xarelto held acutely - will resume at 1/2 dose tomorrow evening and full dose 3 days thereafter (if no bleeding issues).
- Follow for any new issues / complaints.
Chronic HFpEF
- Stable. No evidence of acute volume overload.
- Continue current diuretic regimen and follow I/Os, daily weights, etc.
DM-II with Neuropathy and Retinopathy
- Patient on high-doses of insulin by home regimen.
- Resume at decreased dosing for now.
- Note that he took no insulin during prior admission and sugars remained fairly well-controlled.
- Update A1C.
- Follow glucose and cover with SSI as needed.
- Adjust standing doses as necessary for improved control and to avoid hypoglycemia.
Benign Hypertension
- Stable. Continue metoprolol.
Post-Surgical Hypothyroidism
- Continue current T4 replacement.
Narcolepsy
- Continue combination Ambien / Adderall.
Hyperkalemia
- Mildly elevated potassium on today's labs.
- Hold standing KCl replacement for now.
- Follow lytes and resume / adjust replacement as needed.
DVT Prophylaxis
- Resume Xarelto tomorrow evening (05/22/23)
Obesity secondary to excess calories
- Affects all aspects of care.
- Encourage healthy diet and increased activity as tolerated with goal of weight loss.
Thank you for this consultation. We will follow along with you.
[2024-05-21] MEDS: AMBIEN PO (23:58)
[2024-05-22] VITALS (11 sets, daily range): BP systolic 103–139; BP diastolic 45–67; PULSE 76; O2SAT 99; BMI 34.2
[2024-05-22] MEDS: STERILE WATER FOR INJECTION 10 ML IV ×4 (00:01→23:23)
[2024-05-22] MEDS: MAXIPIME 2000 MG IV ×4 (00:01→23:23)
[2024-05-22 00:18] LABS: Glucose - Point of Care 207 mg/dl (70-99)
--- NOTE | 2024-05-22 00:30 | PTCARENOTE ---
Pt arrived to 2S at 2315 in bed from PACU. Pt AAOX3. VSS. 3LNC. pain 02/19 (see MAR). 3 primaseal dressings C/D/I. Pt oriented to room and call aguirre. bed in lowest position and locked. care ongoing.
[2024-05-22] MEDS: NORMOSOL-R/PLASMALYTE-A 1000 IV (01:28)
[2024-05-22] MEDS: DILAUDID 1 MG IV ×3 (02:19→20:40)
[2024-05-22] MEDS: NORCO 7.5/325 1 TABLET PO ×5 (05:32→23:23)
[2024-05-22] MEDS: SYNTHROID 200 MCG PO (05:32)
--- NOTE | 2024-05-22 07:10 | W.PN.UPDATE ---
Update Note
Progress Note Update
I evaluated the patient at bedside. We discussed plan of care. We discussed that surgery went well and that there is no clear signs of deep purulence. We discussed that we will await microbiology data and infection treatment plan. We discussed
that for presumed surgical site infection in the context of orthopedic hardware at 6 weeks of IV antibiotics may be necessary. His pain is well-controlled.I evaluated the patient at bedside. We discussed plan of care. We discussed that surgery
went well and that there is no clear signs of deep purulence. We discussed that we will await microbiology data and infection treatment plan. We discussed that for presumed surgical site infection in the context of orthopedic hardware at 6 weeks
of IV antibiotics may be necessary. His pain is well-controlled.
--- NOTE | 2024-05-22 07:38 | W.PN.ORTHO ---
Today's Communication / Plan
-
53-year-old male postop day 1 status post exchange of hardware with debridement irrigation with Dr. Cerrato.
-No evidence of deep infection intraoperatively; cultures pending. Infectious disease consulted and following, appreciate assistance.
-Internal medicine on board to assist with medical comorbidities; appreciate assistance with care for patient
-Diet orders current
-Pain well-controlled with current regimen
-DVT prophylaxis of resuming Xarelto
-Pending culture data for further definitive treatment plan.
Assessment
.
Distal Motor Intact: Yes
Dressing:
Clean, dry and intact.
Plan
.
Surgery / Date: Jun 06 R CMN exchange I&D
Activity:
Out of bed.
PT/OT
Subjective
.
.:
Patient resting comfortably.
Vital Signs and Labs
.
Vital Signs and Labs:
Lab Results
05/21/24 22:14
05/21/24 22:14
Temp Pulse Resp BP Pulse Ox
98.1 F 83 19 125/67 94
05/22/24 04:28 05/22/24 04:28 05/22/24 04:28 05/22/24 04:28 05/22/24 04:28
--- NOTE | 2024-05-22 07:59 | PHA.VAN.IN ---
AUC Dosing Plan
- Dosing Variables
Dosing Weight (kg): 110.5
Dosing CrCl (ml/min): 125
Vd coefficient (L/kg): 0.6-0.7
- Empiric Dosing
Initial / Loading Dose: 2000mg - 05/21 23:00
Maintenance Regimen: Vanc 1750mg Q12H - give 1g now to maintain level and start at 1800
Estimated AUC (mcg*h/mL): 464 - 541
Estimated Peak (mcg*h/mL): 31.1 - 36.3
Estimated Trough (mcg/ml): 10.6 - 12.3
Estimated Half Life (H): 6.4
- Monitoring
No levels ordered at this time: levels in next few days - may be slower to accumulate with wt >100kg
Pharmacokinetics Vancomycin I
- -
Patient Age: 53
Patient Sex: Male
Vancomycin Day #: 1
Indication: Bone And Joint
Requesting Provider: Heath Da Silva
Pertinent Antimicrobial Allergies:
no pertinent antibiotic allergies
Height / Weight:
Height 5 ft 10 in
Actual Weight 110.5 kg
Pertinent Past Medical History: BMI ~35, DM 2
- Vital Signs / Lab Results
Temp Pulse Resp BP Pulse Ox
98.1 F 83 19 125/67 94
05/22/24 04:28 05/22/24 04:28 05/22/24 04:28 05/22/24 04:28 05/22/24 04:28
Lab Results - Chemistry
05/21/24
22:14
BUN 12
Creatinine 0.7
Estimated Creat Clear > 125
Albumin 3.5
[2024-05-22 08:03] LABS: Glucose - Point of Care 308 mg/dl (70-99)
[2024-05-22] MEDS: NOVOLOG FLEXPEN-MODERATE RESISTANCE 7 UNITS SC (08:22)
[2024-05-22] MEDS: NOVOLOG MIX 70/30 FLEXPEN 40 UNITS SC ×2 (08:25→17:51)
[2024-05-22] MEDS: NovoLIN R Flexpen 10 UNITS SC ×2 (08:26→13:18)
[2024-05-22] MEDS: ASPIR LOW (ENTERIC COATED) 81 MG PO (08:28)
[2024-05-22] MEDS: TOPROL XL 100 MG PO ×2 (08:29→20:35)
[2024-05-22] MEDS: ENTRESTO 49 MG/51 MG 1 TAB PO (08:29)
[2024-05-22] MEDS: CYMBALTA DELAYED RELEASE 30 MG PO ×2 (08:29→20:35)
[2024-05-22] MEDS: LASIX PO (08:29)
[2024-05-22] MEDS: FARXIGA 10 MG PO (08:29)
[2024-05-22] MEDS: VANCOCIN 200 IV (08:30)
--- NOTE | 2024-05-22 10:00 | CM ---
Reviewed the chart notes and spoke with the patient at the bedside. Patient is s/p right intertrochanteric hip fracture revision reduction and fixation with cephalomedulary nail, debridement and irrigation down to bone. The patient resides with
his spouse in one story home with a ramp to enter. The patient has a rolling walker, wheel chair, shower chair, and RLE prosthetic. The patient has had [facility] in the past. The patient is current with outpatient therapy at the [facility]. The
patient confirmed his pharmacy of choice is the [facility]. ID consult pending. CM continues to be available to patient/family and is monitoring medical plan for needs at discharge.
Plan: Discharge plans will depend on the patient's progress especially if home IV abx required.
[2024-05-22] MEDS: ADDERALL 20 MG PO ×2 (10:03→15:51)
--- NOTE | 2024-05-22 11:34 | W.PN.HOSP.TC ---
Addendum entered and electronically signed by Dilan Isaac DO 05/22/24 13:08:
I spoke with cardiology Dr. Moon, and she has no clear cardiac indication for anticoagulation with Xarelto.
I also spoke with vascular surgery service ([facility]) and they confirmed that they do not have a clear indication for Xarelto at this point in time.
Apparently patient received his last refill for Xarelto from his primary care doctor Dr. Obi Cevallos, who unfortunately recently and therefore I cannot contact him.
I spoke with patient's ex- and she does not have a clear cardiac or vascular indication for Xarelto either. She was under the impression that cardiology was prescribing it.
Moving forward, we will permanently stop Xarelto. DVT prophylaxis to be decided by orthopedic surgery. Sent a [place] text to their service.
Original Note:
Today's Communication/Plan
-
Continue current care
Assessment / Plan
Assessment / Plan
Gen-AAOx3, NAD
HEENT-NC, AT, anicteric, clear oral mm
Neck-supple
CV-reg, no M, +S1/S2
Lungs-clear B/L
Abd-soft, NT, ND
Ext-no edema
Musculoskeletal-no cyanosis, clubbing
Skin-warm and dry
Neuro-grossly non-focal
Psych-calm, cooperative
Right Femur Prosthetic Joint Infection
- s/p intramedullary paul removal, femoral canal irrigation and debridement and exchange nail placement on 05/21/24.
- Post-op care per Ortho.
- WBAT with prosthetic if pain controlled.
- Continue current abx for now pending further ID input.
CAD/ PAD
- Stable. Continue daily ASA.
- Xarelto held acutely - will resume at 1/2 dose tomorrow evening and full dose 3 days thereafter (if no bleeding issues). Apparently Xarelto is not for cardiac indications, I spoke with his angiographer Dr. Nika Moon. It was started by the
vascular surgery service, [facility]. Awaiting for them to get back to me regarding indication.
- Follow for any new issues / complaints.
Chronic HFpEF
- Stable. No evidence of acute volume overload.
- Continue current diuretic regimen and follow I/Os, daily weights, etc.
DM2 with Neuropathy and Retinopathy, hyperglycemia -followed by endocrinology locally.
- Patient on high-doses of insulin by home regimen. At home he uses 70/30 insulin 90 units twice daily, regular insulin sliding scale between 10 and 30 units 3 times a day, glipizide 10 mg 3 times daily, Farxiga 10 mg daily.
- Resume at decreased dosing for now.
- Note that he took no insulin during prior admission and sugars remained fairly well-controlled.
- Update hemoglobin A1c
Essential hypertension
- Stable. Continue metoprolol.
Post-Surgical Hypothyroidism
- Continue current T4 replacement.
Narcolepsy
- Continue combination Ambien / Adderall.
Hyperkalemia -hold potassium supplements. Labs pending for today. Hold Entresto pending labs.
DVT Prophylaxis -Xarelto.
Obesity secondary to excess calories
PT/OT
Anticipated Discharge: > 48 hours
Subjective/Interval History
-
Date of Service: May 22, 2024
Patient seen and examined. Some postoperative pain.
Objective Data
-
Labs:
Laboratory Results
05/22/24
11:15
WBC Pending
Hgb Pending
Hct Pending
Plt Count Pending
Sodium Pending
Potassium Pending
Chloride Pending
Carbon Dioxide Pending
BUN Pending
Creatinine Pending
Glucose Pending
Calcium Pending
Vital Signs:
Vital Signs
Temp Pulse Resp BP Pulse Ox
98.2 F 83 16 115/67 96
05/22/24 07:18 05/22/24 07:18 05/22/24 07:18 05/22/24 07:18 05/22/24 07:18
I&O
05/21/24 05/22/24 05/23/24
06:59 06:59 06:59
Intake Total 2560 / 2560
Output Total 1750 / 1750
Balance 810 / 810
Review of Systems
-
History Source: Patient
All other systems: Reviewed and negative
[2024-05-22 12:14] LABS: Glycohemoglobin (HgbA1c) 7.2 % (4.0-5.6)
[2024-05-22 12:31] LABS: Glucose - Point of Care 281 mg/dl (70-99)
[2024-05-22] MEDS: NOVOLOG FLEXPEN-MODERATE RESISTANCE 5 UNITS SC (13:19)
[2024-05-22 13:41] LABS: % Basophils 0.1 % (0-2); % Eosinophils 0.1 % (0-6); % Immature Granulocytes 0.3 % (0-0.5); % Lymphocytes 10.7 % (20.5-51.1); % Monocytes 8.3 % (1.7-9.3); % Neutrophils 80.5 % (42.2-75.2); Absolute Lymphocytes 0.8 10^3/uL (1.2-3.4); Absolute Monocytes 0.6 10^3/uL (0.1-0.6); Hematocrit 37.5 % (39.0-52.0); Hemoglobin 12.3 g/dL (13.0-18.0); Mean Corp Hgb Conc. 32.8 g/dL (33.0-37.0); Mean Corpuscular Hgb 29.3 pg (27.0-31.0); Mean Corpuscular Volume 89.3 fL (80.0-94.0); Mean Platelet Volume 11.6 fL (7.4-10.4); Nucleated Red Blood Cells % 0 % (-); Platelet Count 231 10^3/uL (130-400); Red Cell Dist. Width 13.6 % (11.5-14.5); White Blood Cell Count 7.5 10^3/uL (4.8-10.8)
[2024-05-22] MEDS: NORMOSOL-R/PLASMALYTE-A IV (13:54)
[2024-05-22 14:08] LABS: Blood Urea Nitrogen 19 mg/dl (9-20); Calcium 8.9 mg/dl (8.4-10.2); Carbon Dioxide 23 mmol/L (22-30); Chloride 97 mmol/L (98-107); Estimated Creatinine Clearance > 125 ml/min; Glucose 336 mg/dl (70-99); Potassium 4.7 mmol/L (3.5-5.1); Sodium 132 mmol/L (135-145); eGFR > 60.00
[2024-05-22] MEDS: DILAUDID 8 MG PO (14:20)
[2024-05-22] MEDS: ASPIRIN 325 MG PO (14:20)
--- NOTE | 2024-05-22 15:50 | CON.ID ---
Consultation
-
Date/Time Consultation Requested: 05/21/24 21:24
Date/Time Consultation Performed: 05/22/24 15:50
Requesting Provider: Rekha MORSE
Performing Provider: Dr Turner
Reason for Consultation: Infected right hip s/p conversion rodding Jun 06. Need for IV ABX
Chief Complaint / Past History
Chief Complaint
R hip infection
History of Present Illness
Mr Wiley is a 53 year old male with history notable for R femur fracture after fall s/p repair with cephalomedulary nail 02/01/24 procedure initially uncomplicated, DM2, h/o R BKA with multiple infections, since that time with redness at the
surgical site, ESR was 23, CRP was 15.2. No pain with ambulation with his prosthetic. No fevers or chills. About 1 month after surgery there was delayed healing of the distal incision that improved with twenty days of bactrim and activity
modification. Note that distal incision was under the prosthetic. Then last week with opening and drainage from the proximal incision and most of the distal incision which was new. Still no fevers or chills. No trauma to the area. He appears to
have lost about 8 kg on chart review. He was admitted for removal of intramedullary paul, replacement with exchange nail / femoral canal irrigation / debridement. Outpatient Xrays by report without displacement and signs of consolidation with
remodeling. MRI by report no deep collections. Never told he was bacteremic, no hardwear.
Patient was electively admitted, since that time no recorded fevers or chills, wbc 7.5, hgb 12.3, plt 231, L shift was noted,a1c 7.2, na 132, t bili 0.7, ast 28, alt 22, 05/11 CRP 15, 05/11 ESR 23, tissue culture no organisms rare wbcs x5, anaerobic
cultures also sent, MRSA screen was sent, had perioperative cefazolin and currently on vancomycin and cefepime, he underwent the planned procedure 05/21 no deep purulence encountered, 5 culture sets taken from various stages of the procedure (both
superficial and deep), affected superficial tissue removed. ID is consulted for assistance with management.
Past History
Additional Past Medical History:
DM-II with Neuropathy and Retinopathy
CHF
ASCVD / PAD
Thyroid Cancer
Depression
Obesity
Narcolepsy
Additional Past Surgical History:
Gastric Bypass
RLE Balloon Angioplasty
Right BKA
Right Femur ORIF (02/01/24)
Cataracts
Thyroidectomy
Allergy History:
Iodinated Contrast Media [Iodinated Contrast Media - IV Dye] Allergy (Verified 05/21/24 15:28)
Anaphylaxis
Poultry Allergy (Verified 05/21/24 15:28)
Anaphylaxis
Medications Reviewed: Yes
Social History
Tobacco: Non-Smoker
Alcohol: None
Drug: None
Family History
Family History: Not Pertinent
Review of Systems
Review of Systems
General: Negative Fever or Chills
All systems: All other systems were reviewed and were negative
Vital Signs
Temp Pulse Resp BP Pulse Ox
97.7 F 74 16 103/62 97
05/22/24 11:25 05/22/24 11:25 05/22/24 11:25 05/22/24 11:25 05/22/24 11:25
Physical Exam
Physical Exam
Constitutional: No Acute Distress
Cardiovascular: Regular Rate and S1/S2; Negative Murmur or Rub
Pulmonary: Clear and Symmetric; Negative Wheezes, Rales or Rhonchi
Gastrointestinal: Soft, Non Tender, Non Distended and Normal Bowel Sounds
Extremities: Other (dressings clean, dry, intact)
Skin: Warm and Dry; Negative Rash or Jaundice
Lab / Diagnostic Study Results
05/22/24 12:08
05/22/24 12:08
Abs Immat Gran (auto) 0.0 10^3/uL (0-0.05) 05/22/24 12:08
Absolute Neuts (auto) 6.0 10^3/uL (1.4-6.5) 05/22/24 12:08
Absolute Lymphs (auto) 0.8 10^3/uL (1.2-3.4) L 05/22/24 12:08
Absolute Monos (auto) 0.6 10^3/uL (0.1-0.6) 05/22/24 12:08
Absolute Basos (auto) 0.0 10^3/uL (0-0.2) 05/22/24 12:08
Immature Gran % 0.3 % (0-0.5) 05/22/24 12:08
Neutrophils % 80.5 % (42.2-75.2) H 05/22/24 12:08
Lymphocytes % 10.7 % (20.5-51.1) L 05/22/24 12:08
Monocytes % 8.3 % (1.7-9.3) 05/22/24 12:08
Eosinophils % 0.1 % (0-6) 05/22/24 12:08
Basophils % 0.1 % (0-2) 05/22/24 12:08
Microbiology Results
Micro:
05/21/24 20:03 Tissue Culture - Pending
Hip - Right Gram Stain - Preliminary
05/21/24 20:14 Tissue Culture - Pending
Femur - Right Gram Stain - Preliminary
05/21/24 19:56 Tissue Culture - Pending
Leg - Right Gram Stain - Preliminary
05/21/24 19:57 Tissue Culture - Pending
Leg - Right Gram Stain - Preliminary
05/21/24 20:26 Tissue Culture - Pending
Femur - Right Gram Stain - Preliminary
05/21/24 20:14 Anaerobic Culture - Pending
Femur - Right
05/21/24 19:56 Anaerobic Culture - Pending
Leg - Right
05/21/24 19:57 Anaerobic Culture - Pending
Leg - Right
05/21/24 20:14 Anaerobic Culture - Pending
Femur - Right
05/22/24 20:26 Anaerobic Culture - Pending
Femur - Right
05/22/24 00:27 MRSA Screen - Pending
Nose
Assessment / Plan
Suspected Subacute PJI
DM2 - fair control
CAD/PAD
- OR cultures x5 no organisms seen on the gram stain - some leukocytes, will follow
- repeat ESR/CRP, minimally elevated outpatient
- reviewed surgical notes regarding findings of recent outpatient imaging - no dislocation or deep collections
- agree with vancomycin and cefepime at this time - tentatively plan 6 week course, if deep cultures are negative this could possibly be abbreviated
- can obtain PICC line when approaching discharge
- if dispo is to rehab, then could determine and initial plan after reviewing cultures on Saturday; if patient if planned to discharge to home, then earliest that home IV antibiotics could be set up is saturday. Given the procedure favor rehab.
[2024-05-22] MEDS: LASIX 40 MG PO (15:52)
[2024-05-22] MEDS: FLUSH (NSS) 2 FLUSH IV ×2 (15:52→23:28)
[2024-05-22 17:30] LABS: Glucose - Point of Care 281 mg/dl (70-99)
[2024-05-22] MEDS: NovoLIN R Flexpen SC (17:54)
[2024-05-22] MEDS: NOVOLOG FLEXPEN-MODERATE RESISTANCE SC (17:54)
[2024-05-22] MEDS: LIPITOR 80 MG PO (18:37)
[2024-05-22] MEDS: VANCOCIN 535 MG IV (18:37)
[2024-05-22] MEDS: NORCO 7.5/325 PO (18:43)
[2024-05-22 22:44] LABS: Glucose - Point of Care 209 mg/dl (70-99)
[2024-05-22] MEDS: AMBIEN 10 MG PO (23:23)
[2024-05-23 06:00] VITALS: BMI 34.1
[2024-05-23] MEDS: SYNTHROID 200 MCG PO (06:00)
[2024-05-23] MEDS: VANCOCIN 535 MG IV ×2 (06:00→17:47)
[2024-05-23] MEDS: NORCO 7.5/325 1 TABLET PO ×3 (06:00→17:47)
[2024-05-23] MEDS: FLUSH (NSS) 1 FLUSH IV ×2 (06:01→09:08)
[2024-05-23 07:32] LABS: Erythrocyte Sed Rate 26 mm/hour (0-20)
[2024-05-23 07:55] VITALS: BP 100/58
[2024-05-23 08:31] LABS: Glucose - Point of Care 76 mg/dl (70-99)
[2024-05-23] MEDS: NovoLIN R Flexpen SC (08:45)
[2024-05-23] MEDS: NOVOLOG FLEXPEN-MODERATE RESISTANCE SC ×3 (09:01→17:49)
[2024-05-23] MEDS: CYMBALTA DELAYED RELEASE 30 MG PO ×2 (09:07→19:58)
[2024-05-23] MEDS: FARXIGA 10 MG PO (09:07)
[2024-05-23] MEDS: ADDERALL 20 MG PO ×2 (09:07→12:11)
[2024-05-23] MEDS: ASPIRIN 325 MG PO (09:07)
[2024-05-23] MEDS: STERILE WATER FOR INJECTION 10 ML IV ×2 (09:08→16:46)
[2024-05-23] MEDS: MAXIPIME 2000 MG IV ×2 (09:08→16:47)
[2024-05-23] MEDS: LASIX PO (09:13)
[2024-05-23] MEDS: NOVOLOG MIX 70/30 FLEXPEN 40 UNITS SC ×2 (09:15→17:48)
[2024-05-23] MEDS: TOPROL XL 100 MG PO ×2 (09:17→20:04)
[2024-05-23] MEDS: DILAUDID 1 MG IV ×2 (09:23→21:53)
--- NOTE | 2024-05-23 10:09 | W.PN.HOSP.TC ---
Today's Communication/Plan
-
Stop regular insulin
Reduce Lasix to once daily
Resume Entresto
Assessment / Plan
Assessment / Plan
Gen-AAOx3, NAD
HEENT-NC, AT, anicteric, clear oral mm
Neck-supple
CV-reg, no M, +S1/S2
Lungs-clear B/L
Abd-soft, NT, ND
Ext-no edema
Musculoskeletal-no cyanosis, clubbing
Skin-warm and dry
Neuro-grossly non-focal
Psych-calm, cooperative
Right Femur Prosthetic Joint Infection
- s/p intramedullary paul removal, femoral canal irrigation and debridement and exchange nail placement on 05/21/24.
- Post-op care per Ortho.
- WBAT with prosthetic if pain controlled.
- Continue current abx for now pending further ID input.
CAD/ PAD
- Stable. Continue daily ASA.
- Xarelto held acutely - will resume at 1/2 dose tomorrow evening and full dose 3 days thereafter (if no bleeding issues). Apparently Xarelto is not for cardiac indications, I spoke with his supervisor data processing Dr. Nika Moon. It was started by the
vascular surgery service, [place] [facility]. Awaiting for them to get back to me regarding indication.
- Follow for any new issues / complaints.
No clear indication for Xarelto, discontinued after discussing with cardiology and vascular surgery.
Chronic HFpEF -stable. Although Lasix is listed as 40 mg twice daily on the admission medication list, patient states that his primary care doctor reduced it to once daily a few weeks ago. Will change the dose.
Resume Entresto.
DM2 with Neuropathy and Retinopathy, hyperglycemia/hypoglycemia -followed by endocrinology locally. Glucose 76 this morning.
- Patient on high-doses of insulin by home regimen. At home he uses 70/30 insulin 90 units twice daily, regular insulin sliding scale between 10 and 30 units 3 times a day, glipizide 10 mg 3 times daily, Farxiga 10 mg daily.
Currently on 7030 mix 40 units twice daily, regular insulin 10 units AC, moderate aspart corrective scale. Given hypoglycemia this morning, stop regular insulin doses. Discussed with patient.
- Hemoglobin A1c 7.2%.
Hyperkalemia -Entresto held on admission. Potassium improved.
Hyponatremia -POA. Pseudohyponatremia due to hyperglycemia. Monitor for now.
Essential hypertension
- Stable. Continue metoprolol.
Post-Surgical Hypothyroidism
- Continue current T4 replacement.
Narcolepsy
- Continue combination Ambien / Adderall.
Hyperkalemia -hold potassium supplements. Labs pending for today. Hold Entresto pending labs.
DVT Prophylaxis -aspirin per orthopedics.
Obesity secondary to excess calories
PT/OT
Anticipated Discharge: > 48 hours
Subjective/Interval History
-
Date of Service: May 23, 2024
Patient seen and examined. No complaints.
Objective Data
-
Vital Signs:
Vital Signs
Temp Pulse Resp BP Pulse Ox
97.8 F 61 16 100/58 99
05/23/24 07:55 05/23/24 07:55 05/23/24 07:55 05/23/24 07:55 05/23/24 07:55
I&O
05/22/24 05/23/24 05/24/24
06:59 06:59 06:59
Intake Total 2560 / 2560 480 / 480
Output Total 1750 / 1750 2500 / 2500
Balance 810 / 810 -2019 / -2019
Review of Systems
-
History Source: Patient
All other systems: Reviewed and negative
--- NOTE | 2024-05-23 10:29 | W.PN.ORTHO ---
Today's Communication / Plan
-
53-year-old male postop day 2 status post exchange of hardware with debridement irrigation with Dr. Cerrato.
-No evidence of deep infection intraoperatively; cultures pending, gram stain with no organisms seen.
- Appreciate input of Infectious disease. Continue with IV abx. PICC line to be placed closer to d/c.
-Internal medicine on board to assist with medical comorbidities; appreciate assistance with care for patient
-Continue pain control with hydrocodone and dilaudid.
-DVT prophylaxis of Aspirin 325 mg po daily.
-Pending culture data for further definitive treatment plan.
-Patient expecting d/c to [facility] in [place] as was the case with previous surgery. Continue with PT/OT to tolerance.
Assessment
.
Distal Motor Intact: Yes
Dressing:
Clean, dry and intact.
Assessment:
53-year-old male postop day 2 status post exchange of hardware with debridement irrigation with Dr. Cerrato.
-No evidence of deep infection intraoperatively; cultures pending, gram stain with no organisms seen.
- Appreciate input of Infectious disease. Continue with IV abx. PICC line to be placed closer to d/c.
-Internal medicine on board to assist with medical comorbidities; appreciate assistance with care for patient
-Continue pain control with hydrocodone and dilaudid.
-DVT prophylaxis of Aspirin 325 mg po daily.
-Pending culture data for further definitive treatment plan.
-Patient expecting d/c to [facility] in [place] as was the case with previous surgery. Continue with PT/OT to tolerance.
Plan
.
Surgery / Date: Jun 06 R CMN exchange I&D
DVT Prophylaxis: Aspirin
Activity:
Out of bed.
PT/OT
Discharge Plan: Rehab
Subjective
.
.:
Patient resting in bed reporting some increased discomfort this morning. was up and about earlier this morning, but had to return to bed due to discomfort. Took pain medication just prior to my arrival.
Vital Signs and Labs
.
Vital Signs and Labs:
Lab Results
05/22/24 12:08
05/22/24 12:08
Temp Pulse Resp BP Pulse Ox
97.8 F 61 16 100/58 99
05/23/24 07:55 05/23/24 07:55 05/23/24 07:55 05/23/24 07:55 05/23/24 07:55
Physical Exam
-
Right hip/thigh: Dressings in place with mild drainage of proximal dressing. Mild swelling, no surrounding erythema. Some discomfort with ROM hip.
--- NOTE | 2024-05-23 10:57 | PHA.VAN.FU ---
Vancomycin Assessment / Plan
- Assessment
Renal Function: No New Labs Today
In the past 24 hrs, patient has been: Afebrile
Concomitant Antimicrobials: cefepime
- Dosing Plan
Continue: vancomycin 1750 mg q12h - first dose 1800 05/22/24
- Monitoring Plan
No level(s) ordered at this time: levels in next few days - may be slower to accumulate w/ wt >100kg
- Follow Up
Pharmacy will continue to follow.
Vancomycin Follow UP
- -
Patient Age: 53
Patient Sex: Male
Vancomycin Day #: 2
Indication: [facility]
Requesting Provider: Heath Da Silva
Pertinent Antimicrobial Allergies:
no pertinent antibiotic allergies
Height / Weight:
Height 5 ft 10 in
Actual Weight 107.955 kg
Pertinent Past Medical History: BMI ~35, DM 2
- Vital Signs / Lab Results
Temp Pulse Resp BP Pulse Ox
97.8 F 61 16 100/58 99
05/23/24 07:55 05/23/24 07:55 05/23/24 07:55 05/23/24 07:55 05/23/24 07:55
Lab Results - Hematology
05/22/24
12:08
WBC 7.5
Lab Results - Chemistry
05/21/24 05/22/24
22:14 12:08
BUN 12 19
Creatinine 0.7 0.7
Estimated Creat Clear > 125 > 125
Albumin 3.5
Microbiology Results
05/22/24 00:27 MRSA Screen - Final
Nose No Methicillin Resistant Staphylococcus aureus isolated.
05/21/24 20:03 Gram Stain - Preliminary
Hip - Right
05/21/24 20:14 Gram Stain - Preliminary
Femur - Right
05/21/24 19:56 Gram Stain - Preliminary
Leg - Right
05/21/24 19:57 Gram Stain - Preliminary
Leg - Right
05/21/24 20:26 Gram Stain - Preliminary
Femur - Right
[2024-05-23 12:04] VITALS: BP 130/60; PULSE 71; O2SAT 100
--- NOTE | 2024-05-23 12:14 | PTCARENOTE ---
entered room and pt already finished lunch. refused accu check-own monitor reading was 187-refused insulin. pt reminded to call for glucose checks prior to eating his meals. pt verbalized understanding. stated I didn't call because I wasn't
taking any insulin!
[2024-05-23] MEDS: DILAUDID 8 MG PO (14:55)
[2024-05-23 15:57] VITALS: BP 104/58
[2024-05-23 17:32] LABS: Glucose - Point of Care 130 mg/dl (70-99)
[2024-05-23] MEDS: LIPITOR 80 MG PO (17:47)
[2024-05-23 21:38] LABS: Glucose - Point of Care 122 mg/dl (70-99)
[2024-05-23] MEDS: AMBIEN 10 MG PO (21:53)
[2024-05-23] MEDS: ENTRESTO 49 MG/51 MG 1 TAB PO (22:04)
[2024-05-23 23:45] VITALS: BP 100/60
[2024-05-24] MEDS: MAXIPIME 2000 MG IV ×4 (00:22→23:10)
[2024-05-24] MEDS: NORCO 7.5/325 1 TABLET PO ×5 (00:23→23:09)
[2024-05-24] MEDS: STERILE WATER FOR INJECTION 10 ML IV ×4 (00:23→23:10)
[2024-05-24] MEDS: VANCOCIN 535 MG IV ×2 (05:40→18:04)
[2024-05-24 06:16] LABS: Blood Urea Nitrogen 17 mg/dl (9-20); Calcium 8.1 mg/dl (8.4-10.2); Carbon Dioxide 27 mmol/L (22-30); Chloride 104 mmol/L (98-107); Estimated Creatinine Clearance > 125 ml/min; Glucose 84 mg/dl (70-99); Sodium 139 mmol/L (135-145); eGFR > 60.00
[2024-05-24 07:45] VITALS: BP 94/56
[2024-05-24 07:59] LABS: Glucose - Point of Care 84 mg/dl (70-99)
[2024-05-24] MEDS: TOPROL XL 100 MG PO ×2 (08:20→20:13)
[2024-05-24] MEDS: ENTRESTO 49 MG/51 MG 1 TAB PO ×2 (08:20→20:13)
[2024-05-24] MEDS: ASPIRIN 325 MG PO (08:20)
[2024-05-24] MEDS: CYMBALTA DELAYED RELEASE 30 MG PO ×2 (08:20→20:13)
[2024-05-24] MEDS: FARXIGA 10 MG PO (08:21)
[2024-05-24] MEDS: ADDERALL 20 MG PO ×2 (08:21→11:35)
[2024-05-24] MEDS: NOVOLOG FLEXPEN-MODERATE RESISTANCE SC ×2 (08:25→17:38)
[2024-05-24] MEDS: SYNTHROID 200 MCG PO (08:25)
[2024-05-24] MEDS: NOVOLOG MIX 70/30 FLEXPEN 40 UNITS SC ×2 (08:36→17:59)
--- NOTE | 2024-05-24 08:40 | W.PN.ORTHO ---
Today's Communication / Plan
-
53-year-old male postop day 3 status post exchange of hardware with debridement irrigation with Dr. Cerrato.
-No evidence of deep infection intraoperatively; cultures with no growth at 18-24 hours, anaerobic cx pending, gram stain with no organisms seen.
- Appreciate input of Infectious disease. Continue with IV abx. PICC line to be placed closer to d/c.
-Internal medicine on board to assist with medical comorbidities; appreciate assistance with care for patient
-Continue pain control with hydrocodone and dilaudid.
-DVT prophylaxis of Aspirin 325 mg po daily.
-Likely d/c home with home health and outpatient PT at [facility].
-D/c pending IV antibiotics being set up.
Assessment
.
Distal Motor Intact: Yes
Dressing:
Clean, dry and intact.
Assessment:
53-year-old male postop day 3 status post exchange of hardware with debridement irrigation with Dr. Cerrato.
-No evidence of deep infection intraoperatively; cultures with no growth at 18-24 hours, anaerobic cx pending, gram stain with no organisms seen.
- Appreciate input of Infectious disease. Continue with IV abx. PICC line to be placed closer to d/c.
-Internal medicine on board to assist with medical comorbidities; appreciate assistance with care for patient
-Continue pain control with hydrocodone and dilaudid.
-DVT prophylaxis of Aspirin 325 mg po daily.
-Pending culture data for further definitive treatment plan.
-Likely d/c home with home health and outpatient PT at [facility].
-D/c pending IV antibiotics being set up.
Plan
.
Surgery / Date: Jun 06 R CMN exchange I&D
DVT Prophylaxis: Aspirin
Activity:
Out of bed.
PT/OT
Discharge Plan: Home
Subjective
.
.:
Patient resting comfortably eating breakfast. Reports pain better controlled overnight.
Vital Signs and Labs
.
Vital Signs and Labs:
Lab Results
05/22/24 12:08
05/24/24 04:56
Temp Pulse Resp BP Pulse Ox
97.3 F 58 16 94/56 98
05/24/24 07:45 05/24/24 07:45 05/24/24 07:45 05/24/24 07:45 05/24/24 07:45
Physical Exam
-
Right hip/thigh: Dressings c/d/i, drainage stable. Mild swelling and early ecchymosis. NTTP. ROM without discomfort.
--- NOTE | 2024-05-24 09:23 | W.PN.HOSP.TC ---
Today's Communication/Plan
-
Continue current care
Assessment / Plan
Assessment / Plan
Gen-AAOx3, NAD
HEENT-NC, AT, anicteric, clear oral mm
Neck-supple
CV-reg, no M, +S1/S2
Lungs-clear B/L
Abd-soft, NT, ND
Ext-no edema
Musculoskeletal-no cyanosis, clubbing
Skin-warm and dry
Neuro-grossly non-focal
Psych-calm, cooperative
Right Femur Prosthetic Joint Infection
- s/p intramedullary paul removal, femoral canal irrigation and debridement and exchange nail placement on 05/21/24.
- Post-op care per Ortho.
- WBAT with prosthetic if pain controlled.
- Continue current abx for now pending further ID input.
CAD/ PAD
- Stable. Continue daily ASA. Was on Xarelto prior to admission. No clear indication for Xarelto, discontinued after discussing with cardiology and vascular surgery.
- Follow for any new issues / complaints.
Chronic HFpEF -stable. Although Lasix is listed as 40 mg twice daily on the admission medication list, patient states that his primary care doctor reduced it to once daily a few weeks ago. Will change the dose.
Continue Entresto.
DM2 with Neuropathy and Retinopathy, hyperglycemia/hypoglycemia -followed by endocrinology locally. Glucose 84 this morning.
- Patient on high-doses of insulin by home regimen. At home he uses 70/30 insulin 90 units twice daily, regular insulin sliding scale between 10 and 30 units 3 times a day, glipizide 10 mg 3 times daily, Farxiga 10 mg daily.
Currently on 70/30 mix 40 units twice daily, moderate aspart corrective scale.
- Hemoglobin A1c 7.2%.
Hyperkalemia -Entresto held on admission. Potassium improved.
Hyponatremia -resolved.
Essential hypertension
- Stable. Continue metoprolol.
Post-Surgical Hypothyroidism
- Continue current T4 replacement.
Narcolepsy
- Continue combination Ambien / Adderall.
Hyperkalemia -hold potassium supplements. Labs pending for today. Hold Entresto pending labs.
DVT Prophylaxis -aspirin per orthopedics.
Obesity secondary to excess calories
PT/OT
Anticipated Discharge: Within 24 hours
Subjective/Interval History
-
Date of Service: May 24, 2024
Patient seen and examined. No complaints.
Objective Data
-
Labs:
Laboratory Results
05/24/24
04:56
Sodium 139
Potassium 4.0
Chloride 104
Carbon Dioxide 27
BUN 17
Creatinine 0.7
Glucose 84
Calcium 8.1 L
Vital Signs:
Vital Signs
Temp Pulse Resp BP Pulse Ox
97.3 F 58 16 94/56 98
05/24/24 07:45 05/24/24 07:45 05/24/24 07:45 05/24/24 07:45 05/24/24 07:45
I&O
05/23/24 05/24/24 05/25/24
06:59 06:59 06:59
Intake Total 480 / 480 2820 / 2820
Output Total 2500 / 2500
Balance -2019 / -2019 2820 / 2820
Review of Systems
-
History Source: Patient
All other systems: Reviewed and negative
--- NOTE | 2024-05-24 10:02 | PHA.VAN.FU ---
Vancomycin Assessment / Plan
- Assessment
Renal Function: Stable
In the past 24 hrs, patient has been: Afebrile
Concomitant Antimicrobials: cefepime
- Dosing Plan
Continue: vancomycin 1750 mg q12h
- Monitoring Plan
Peak Level: 05/24/24 21:30 - after 5th maint dsoe
Trough Level: 05/25/24 0530
- Follow Up
Pharmacy will continue to follow.
Vancomycin Follow UP
- -
Patient Age: 53
Patient Sex: Male
Vancomycin Day #: 3
Indication: Bone And Joint
Requesting Provider: Heath Da Silva
Pertinent Antimicrobial Allergies:
no pertinent antibiotic allergies
Height / Weight:
Height 5 ft 10 in
Actual Weight 107.955 kg
Pertinent Past Medical History: BMI ~35, DM 2
- Vital Signs / Lab Results
Temp Pulse Resp BP Pulse Ox
97.3 F 58 16 94/56 98
05/24/24 07:45 05/24/24 07:45 05/24/24 07:45 05/24/24 07:45 05/24/24 07:45
Lab Results - Hematology
05/22/24
12:08
WBC 7.5
Lab Results - Chemistry
05/21/24 05/22/24 05/24/24
22:14 12:08 04:56
BUN 12 19 17
Creatinine 0.7 0.7 0.7
Estimated Creat Clear > 125 > 125 > 125
Albumin 3.5
Microbiology Results
05/21/24 19:57 Anaerobic Culture - Preliminary
Leg - Right Culture pending. Anaerobic cultures are examined after 3
days incubation. Additional information to follow.
05/21/24 19:57 Tissue Culture - Preliminary
Leg - Right No Growth After 18-24 Hours
Gram Stain - Preliminary
05/21/24 20:14 Anaerobic Culture - Preliminary
Femur - Right Culture pending. Anaerobic cultures are examined after 3
days incubation. Additional information to follow.
05/21/24 20:03 Tissue Culture - Preliminary
Hip - Right No Growth After 18-24 Hours
Gram Stain - Preliminary
05/22/24 20:26 Anaerobic Culture - Preliminary
Femur - Right Culture pending. Anaerobic cultures are examined after 3
days incubation. Additional information to follow.
05/21/24 20:26 Tissue Culture - Preliminary
Femur - Right No Growth After 18-24 Hours
Gram Stain - Preliminary
05/21/24 20:14 Anaerobic Culture - Preliminary
Femur - Right Culture pending. Anaerobic cultures are examined after 3
days incubation. Additional information to follow.
05/21/24 20:14 Tissue Culture - Preliminary
Femur - Right No Growth After 18-24 Hours
Gram Stain - Preliminary
05/21/24 19:56 Anaerobic Culture - Preliminary
Leg - Right Culture pending. Anaerobic cultures are examined after 3
days incubation. Additional information to follow.
05/21/24 19:56 Tissue Culture - Preliminary
Leg - Right No Growth After 18-24 Hours
Gram Stain - Preliminary
05/22/24 00:27 MRSA Screen - Final
Nose No Methicillin Resistant Staphylococcus aureus isolated.
--- NOTE | 2024-05-24 10:15 | PTCARENOTE ---
Patient resting comfortably in bed. No c/o pain at present. Patient tolerated 2200 diet. Patient refusing colace and ice to right thigh. Call aguirre in reach.
[2024-05-24 11:30] LABS: Glucose - Point of Care 152 mg/dl (70-99)
[2024-05-24] MEDS: DILAUDID 8 MG PO (11:35)
[2024-05-24] MEDS: NOVOLOG FLEXPEN-MODERATE RESISTANCE 1 UNITS SC (11:37)
--- NOTE | 2024-05-24 12:44 | W.PN.ID1 ---
Date of Service
Date of Service: May 24, 2024
Today's Communication
follow cultures
Assessment / Plan
Suspected Subacute PJI
DM2 - fair control
CAD/PAD
- OR cultures x5 no organisms seen on the gram stain - some leukocytes, will follow
- repeat ESR/CRP some mild elevation post operatively
- agree with vancomycin and cefepime at this time - tentatively plan 6 week course, if deep cultures are negative this could possibly be abbreviated
- can obtain PICC line when approaching discharge
- patient is planned to discharge to home, earliest that home IV antibiotics could be set up is saturday, will finalize antibiotic plans tomorrow
Chief Complaint
-: Other (suspected PJI)
Subjective / Review of Systems
afebrile
bp overall stable
Vital Signs / Physical Exam
Vital Signs
Vital Signs
Temp Pulse Resp BP Pulse Ox
97.3 F 58 16 94/56 98
05/24/24 07:45 05/24/24 07:45 05/24/24 07:45 05/24/24 07:45 05/24/24 07:45
Physical Exam
Constitutional: No Acute Distress
Cardiovascular: Regular Rate and S1/S2; Negative Murmur or Rub
Pulmonary: Clear and Symmetric; Negative Wheezes or Rales
Gastrointestinal: Soft, Non Tender, Non Distended and Normal Bowel Sounds
Skin: Warm and Dry; Negative Rash or Jaundice
Wound: Other (dressing with small amount of strike through)
Objective Data
Lab Data
Lab Results
05/22/24 12:08
05/24/24 04:56
ESR 26 mm/hour (0-20) H 05/23/24 06:09
Estimated Creat Clear > 125 ml/min 05/24/24 04:56
Total Bilirubin 0.7 mg/dl (0.2-1.3) 05/21/24 22:14
AST 28 U/L (17-59) 05/21/24 22:14
ALT 22 U/L (0-50) 05/21/24 22:14
Alkaline Phosphatase 136 U/L (38-126) H 05/21/24 22:14
C-Reactive Protein 37.00 mg/L (0.0-10.00) H 05/23/24 06:09
Most recent labs reviewed.
Micro Results:
05/21/24 20:26 Tissue Culture - Preliminary
Femur - Right No Growth After 48 Hours
Gram Stain - Preliminary
05/21/24 20:03 Tissue Culture - Preliminary
Hip - Right No Growth After 48 Hours
Gram Stain - Preliminary
05/21/24 19:57 Tissue Culture - Preliminary
Leg - Right No Growth After 48 Hours
Gram Stain - Preliminary
05/21/24 19:56 Tissue Culture - Preliminary
Leg - Right No Growth After 48 Hours
Gram Stain - Preliminary
05/21/24 20:14 Tissue Culture - Preliminary
Femur - Right No Growth After 48 Hours
Gram Stain - Preliminary
05/21/24 19:57 Anaerobic Culture - Preliminary
Leg - Right Culture pending. Anaerobic cultures are examined after 3
days incubation. Additional information to follow.
05/21/24 20:14 Anaerobic Culture - Preliminary
Femur - Right Culture pending. Anaerobic cultures are examined after 3
days incubation. Additional information to follow.
05/22/24 20:26 Anaerobic Culture - Preliminary
Femur - Right Culture pending. Anaerobic cultures are examined after 3
days incubation. Additional information to follow.
05/21/24 20:14 Anaerobic Culture - Preliminary
Femur - Right Culture pending. Anaerobic cultures are examined after 3
days incubation. Additional information to follow.
05/21/24 19:56 Anaerobic Culture - Preliminary
Leg - Right Culture pending. Anaerobic cultures are examined after 3
days incubation. Additional information to follow.
05/22/24 00:27 MRSA Screen - Final
Nose No Methicillin Resistant Staphylococcus aureus isolated.
[2024-05-24 15:25] VITALS: BP 118/64
[2024-05-24 17:05] LABS: Glucose - Point of Care 118 mg/dl (70-99)
[2024-05-24] MEDS: LIPITOR 80 MG PO (17:40)
[2024-05-24] MEDS: LASIX 40 MG PO (17:40)
[2024-05-24 22:00] LABS: Vancomycin Peak 33.3 ug/ml (18-26)
[2024-05-24 22:05] LABS: Glucose - Point of Care 258 mg/dl (70-99)
[2024-05-24] MEDS: AMBIEN 10 MG PO (23:09)
[2024-05-24 23:25] VITALS: BP 116/64
[2024-05-25] MEDS: SYNTHROID 200 MCG PO (05:32)
[2024-05-25] MEDS: NORCO 7.5/325 1 TABLET PO ×3 (05:32→17:14)
[2024-05-25 06:02] LABS: Vancomycin Trough 19.1 ug/ml (5-20)
[2024-05-25 07:14] VITALS: BP 115/58
[2024-05-25] MEDS: TOPROL XL 100 MG PO (07:43)
[2024-05-25] MEDS: CYMBALTA DELAYED RELEASE 30 MG PO (07:43)
[2024-05-25] MEDS: MAXIPIME 2000 MG IV ×2 (07:43→17:12)
[2024-05-25] MEDS: ENTRESTO 49 MG/51 MG 1 TAB PO (07:43)
[2024-05-25] MEDS: ADDERALL 20 MG PO ×2 (07:43→11:44)
[2024-05-25] MEDS: STERILE WATER FOR INJECTION 10 ML IV ×2 (07:43→17:12)
[2024-05-25] MEDS: ASPIRIN 325 MG PO (07:44)
[2024-05-25] MEDS: FARXIGA 10 MG PO (07:44)
[2024-05-25] MEDS: VANCOCIN 535 MG IV (07:45)
[2024-05-25] MEDS: NOVOLOG FLEXPEN-MODERATE RESISTANCE 3 UNITS SC (07:52)
[2024-05-25 07:53] LABS: Glucose - Point of Care 209 mg/dl (70-99)
[2024-05-25] MEDS: NOVOLOG MIX 70/30 FLEXPEN 40 UNITS SC (07:54)
[2024-05-25] MEDS: DILAUDID 1 MG IV (08:03)
--- NOTE | 2024-05-25 08:24 | PHA.VAN.FU ---
Addendum entered and electronically signed by Alanna Hendricks Bryson 05/25/24 13:24:
Add-on BUN & SCR requested due to supratherapeutic AUC - values remain stable
Original Note:
Vancomycin Assessment / Plan
- Assessment
Renal Function: No New Labs Today
In the past 24 hrs, patient has been: Afebrile
Concomitant Antimicrobials: cefepime
- Assessment - Therapeutic Drug Monitoring
Extrapolated Cmax (mcg/mL): 37.2
Peak level was drawn: Appropriately (drawn ~1.6H after end of previous infusion)
Extrapolated Cmin (mcg/mL): 18.2
Trough Drawn: Appropriately
Levels were drawn: At steady state (levels drawn after 5th mainteannce dose)
Calculated AUC (mcg*h/mL): 642
Calculated ke: 0.0717
Calculated half life (H): 9.7
Calculated Vd (L): 75.9 (~0.7 L/kg)
Calculated Vanc CL (ml/min): 91
- Dosing Plan
Adjust Regimen to: Vanc 1250mg Q12H starting 05/26 0600
New Regimen Predicts: AUC (484), Peak (28.5), Trough (13.4)
will give 750mg x1 at 1800 to match new total daily dose of 2500mg
- Monitoring Plan
No level(s) ordered at this time: consider repeat levels in next few days
- Follow Up
Pharmacy will continue to follow.
Vancomycin Follow UP
- -
Patient Age: 53
Patient Sex: Male
Vancomycin Day #: 4
Indication: Bone And Joint
Requesting Provider: Heath Da Silva / Yue
Pertinent Antimicrobial Allergies:
no pertinent antibiotic allergies
Height / Weight:
Height 5 ft 10 in
Actual Weight 107.955 kg
Pertinent Past Medical History: BMI ~35, DM 2
- Vital Signs / Lab Results
Temp Pulse Resp BP Pulse Ox
97.4 F 56 16 115/58 99
05/25/24 07:14 05/25/24 07:14 05/25/24 07:14 05/25/24 07:14 05/25/24 07:14
Lab Results - Hematology
05/22/24
12:08
WBC 7.5
Lab Results - Chemistry
05/22/24 05/24/24
12:08 04:56
BUN 19 17
Creatinine 0.7 0.7
Estimated Creat Clear > 125 > 125
Microbiology Results
05/21/24 20:26 Tissue Culture - Preliminary
Femur - Right No Growth After 48 Hours
Gram Stain - Preliminary
05/21/24 20:03 Tissue Culture - Preliminary
Hip - Right No Growth After 48 Hours
Gram Stain - Preliminary
05/21/24 19:57 Tissue Culture - Preliminary
Leg - Right No Growth After 48 Hours
Gram Stain - Preliminary
05/21/24 19:56 Tissue Culture - Preliminary
Leg - Right No Growth After 48 Hours
Gram Stain - Preliminary
05/21/24 20:14 Tissue Culture - Preliminary
Femur - Right No Growth After 48 Hours
Gram Stain - Preliminary
05/21/24 19:57 Anaerobic Culture - Preliminary
Leg - Right Culture pending. Anaerobic cultures are examined after 3
days incubation. Additional information to follow.
05/21/24 20:14 Anaerobic Culture - Preliminary
Femur - Right Culture pending. Anaerobic cultures are examined after 3
days incubation. Additional information to follow.
05/22/24 20:26 Anaerobic Culture - Preliminary
Femur - Right Culture pending. Anaerobic cultures are examined after 3
days incubation. Additional information to follow.
05/21/24 20:14 Anaerobic Culture - Preliminary
Femur - Right Culture pending. Anaerobic cultures are examined after 3
days incubation. Additional information to follow.
05/21/24 19:56 Anaerobic Culture - Preliminary
Leg - Right Culture pending. Anaerobic cultures are examined after 3
days incubation. Additional information to follow.
05/22/24 00:27 MRSA Screen - Final
Nose No Methicillin Resistant Staphylococcus aureus isolated.
Therapeutic Drug Monitoring
Vancomycin Peak 33.3 ug/ml (18-26) H 05/24/24 21:37
Vancomycin Trough 19.1 ug/ml (5-20) 05/25/24 05:22
--- NOTE | 2024-05-25 08:48 | W.PN.UPDATE ---
Update Note
Progress Note Update
53-year-old male postop day 4 status post exchange of hardware with debridement irrigation with Dr. Cerrato (Jun 06). Sitting on bedside this AM, comfortable. Incisions dressed over the right thigh. Afeb.
-No evidence of deep infection intraoperatively; cultures with no growth at 48 hours, anaerobic cx pending, gram stain with no organisms seen.
- Appreciate input of Infectious disease. Continue with IV abx (Vanco + Cefepime). PICC line to be placed closer to d/c.
-Internal medicine on board to assist with medical comorbidities; appreciate assistance with care for patient
-Continue pain control with hydrocodone and dilaudid.
-DVT prophylaxis of Aspirin 325 mg po daily.
-Likely d/c home today with home health and outpatient PT at [facility].
-D/c pending IV antibiotics being set up, finalized plan today. Will finalize meds in D/c plan when definitive
-Outpatient Ortho follow-up 2 weeks for staple removal
[2024-05-25 08:55] LABS: Blood Urea Nitrogen 16 mg/dl (9-20); Estimated Creatinine Clearance > 125 ml/min
[2024-05-25 10:57] VITALS: BMI 35.0
[2024-05-25 11:42] LABS: Glucose - Point of Care 251 mg/dl (70-99)
[2024-05-25] MEDS: DILAUDID 8 MG PO (11:44)
[2024-05-25] MEDS: NOVOLOG FLEXPEN-MODERATE RESISTANCE 5 UNITS SC (11:44)
--- NOTE | 2024-05-25 12:50 | W.PN.ID1 ---
Date of Service
Date of Service: May 25, 2024
Today's Communication
- case management specialist with get quotes for both and review with patient; patient aware of alternative (going to inpatient rehab) and refuses
- duration for either regimen would be through 07/01/24
- labs to be sent to my office
- follow up with orthopedics
Assessment / Plan
Suspected Subacute PJI
DM2 - fair control
CAD/PAD
- OR cultures x5 no organisms seen on the gram stain - some leukocytes, will follow
- repeat ESR/CRP some mild elevation post operatively
- PICC ordered
- if going home with infusion services can continue vancomycin 1.25 gm iv q12 and cefepime 2 gm iv q12
- if going to outpatient infusion center needs a once daily regimen - would use daptomycin 880 mg IV q24 (adjusted body weight) and ertapenem 1 gm iv q24
- case management specialist with get quotes for both and review with patient; patient aware of alternative (going to inpatient rehab) and refuses
- duration for either regimen would be through 07/01/24
- labs to be sent to my office
- follow up with orthopedics
Chief Complaint
-: Other (suspected PJI)
Subjective / Review of Systems
afebrile
bp stable
tolerating current therapies
Vital Signs / Physical Exam
Vital Signs
Vital Signs
Temp Pulse Resp BP Pulse Ox
97.4 F 56 16 115/58 99
05/25/24 07:14 05/25/24 07:14 05/25/24 07:14 05/25/24 07:14 05/25/24 08:00
Physical Exam
Constitutional: No Acute Distress
Cardiovascular: Regular Rate and S1/S2; Negative Murmur or Rub
Pulmonary: Clear and Symmetric; Negative Wheezes or Rales
Gastrointestinal: Soft, Non Tender, Non Distended and Normal Bowel Sounds
Skin: Warm and Dry; Negative Rash or Jaundice
Objective Data
Lab Data
Lab Results
05/22/24 12:08
05/25/24 05:22
ESR 26 mm/hour (0-20) H 05/23/24 06:09
Estimated Creat Clear > 125 ml/min 05/25/24 05:22
Total Bilirubin 0.7 mg/dl (0.2-1.3) 05/21/24 22:14
AST 28 U/L (17-59) 05/21/24 22:14
ALT 22 U/L (0-50) 05/21/24 22:14
Alkaline Phosphatase 136 U/L (38-126) H 05/21/24 22:14
C-Reactive Protein 37.00 mg/L (0.0-10.00) H 05/23/24 06:09
Most recent labs reviewed.
Micro Results:
05/21/24 20:14 Anaerobic Culture - Preliminary
Femur - Right NO ANAEROBES ISOLATED
05/21/24 19:56 Anaerobic Culture - Preliminary
Leg - Right NO ANAEROBES ISOLATED
05/21/24 19:57 Anaerobic Culture - Preliminary
Leg - Right NO ANAEROBES ISOLATED
05/21/24 20:14 Anaerobic Culture - Preliminary
Femur - Right NO ANAEROBES ISOLATED
05/22/24 20:26 Anaerobic Culture - Preliminary
Femur - Right NO ANAEROBES ISOLATED
05/21/24 19:57 Tissue Culture - Preliminary
Leg - Right No Growth After 72 Hours
Gram Stain - Preliminary
05/21/24 20:03 Tissue Culture - Preliminary
Hip - Right No Growth After 72 Hours
Gram Stain - Preliminary
05/21/24 20:26 Tissue Culture - Preliminary
Femur - Right No Growth After 72 Hours
Gram Stain - Preliminary
05/21/24 19:56 Tissue Culture - Preliminary
Leg - Right No Growth After 72 Hours
Gram Stain - Preliminary
05/21/24 20:14 Tissue Culture - Preliminary
Femur - Right No Growth After 72 Hours
Gram Stain - Preliminary
05/22/24 00:27 MRSA Screen - Final
Nose No Methicillin Resistant Staphylococcus aureus isolated.
Care Review
Plan reviewed with: Physician (Dr Cerrato, Dr Vieyra - elizabeth)
--- NOTE | 2024-05-25 14:23 | W.PN.HOSP.TC ---
Today's Communication/Plan
-
switched to lasix daily
resume dm meds upon dc
Abx as per ID
Assessment / Plan
Assessment / Plan
Gen-AAOx3, NAD
HEENT-NC, AT, anicteric, clear oral mm
Neck-supple
CV-reg, no M, +S1/S2
Lungs-clear B/L
Abd-soft, NT, ND
Ext-no edema
Musculoskeletal-no cyanosis, clubbing
Skin-warm and dry
Neuro-grossly non-focal
Psych-calm, cooperative
Right Femur Prosthetic Joint Infection
- s/p intramedullary paul removal, femoral canal irrigation and debridement and exchange nail placement on 05/21/24.
- Post-op care per Ortho.
- WBAT with prosthetic if pain controlled.
- Continue current abx as per ID
CAD/ PAD
- Stable. Continue daily ASA. Was on Xarelto prior to admission. No clear indication for Xarelto, discontinued after discussing with cardiology and vascular surgery.
- Follow for any new issues / complaints.
Chronic HFpEF -stable. Although Lasix is listed as 40 mg twice daily on the admission medication list, patient states that his primary care doctor reduced it to once daily a few weeks ago. Will change the dose.
Continue Entresto.
DM2 with Neuropathy and Retinopathy, hyperglycemia/hypoglycemia -followed by endocrinology locally. Glucose 84 this morning.
- Patient on high-doses of insulin by home regimen. At home he uses 70/30 insulin 90 units twice daily, regular insulin sliding scale between 10 and 30 units 3 times a day, glipizide 10 mg 3 times daily, Farxiga 10 mg daily.
Currently on 70/30 mix 40 units twice daily, moderate aspart corrective scale.
- Hemoglobin A1c 7.2%.
-resume home regimen upon discharge
Hyperkalemia -Entresto held on admission. Potassium improved.
Hyponatremia -resolved.
Essential hypertension
- Stable. Continue metoprolol.
Post-Surgical Hypothyroidism
- Continue current T4 replacement.
Narcolepsy
- Continue combination Ambien / Adderall.
Hyperkalemia -hold potassium supplements. resume entresto
DVT Prophylaxis -aspirin per orthopedics.
Obesity secondary to excess calories
PT/OT
Anticipated Discharge: Today
Subjective/Interval History
-
Date of Service: May 25, 2024
no acute events overnight
Objective Data
-
Labs:
Laboratory Results
05/25/24
05:22
BUN 16
Creatinine 0.7
Vital Signs:
Vital Signs
Temp Pulse Resp BP Pulse Ox
97.4 F 56 16 115/58 99
05/25/24 07:14 05/25/24 07:14 05/25/24 07:14 05/25/24 07:14 05/25/24 08:00
I&O
05/24/24 05/25/24 05/26/24
06:59 06:59 06:59
Intake Total 2820 / 2820 720 / 720 960 / 960
Output Total 1800 / 1800
Balance 2820 / 2820 720 / 720 -840 / -840
Review of Systems
-
History Source: Patient
All other systems: Not reviewed unless documented
Physical Exam
-
General: No Apparent Distress
HEENT: Atraumatic and Moist Mucous Membranes
Respiratory: Clear to Auscultation
Cardiac: Regular Rhythm and S1/S2; Negative Murmur, Rub or JVD
GI: Soft, Nontender and Normal Bowel Sounds
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
Neuro: Awake, Alert and No Motor Deficits
Data Reviewed
-
Total Time Spent with Patient (in minutes): 57
Diagnostic Radiology: Report Reviewed by me
Labs: Labs Reviewed by me
--- NOTE | 2024-05-25 14:32 | CM ---
Addendum entered by Kiara Reyes RN 05/25/24 16:47:
IMM signed and placed on chart. PICC placed, cxr to be completed.
Addendum entered by Kiara Reyes RN 05/25/24 16:21:
Spoke with Lisa in the infusion center and explained patient wanting to leave without IV abx set-up. PICC line being placed now. Per Lisa, unlikely he will be able to be seen tomorrow, more likely Saturday.
Addendum entered by Kiara Reyes RN 05/25/24 14:41:
Per Sandra from the infusion room, cost would be approximately $45/day co-payment.
Original Note:
Reviewed the chart notes. Scripts received for home infusion and [facility] infusion room. Clinicals faxed to [facility] for cost analysis of IV abx. Awaiting call back on cost. CM continues to be available to patient/family and is
monitoring medical plan for needs at discharge.
Plan: Discharge plans will depend on cost analysis of IV abx. PICC line placement pending.
[2024-05-25 15:09] VITALS: BP 121/65
[2024-05-25 17:00] LABS: Glucose - Point of Care 158 mg/dl (70-99)
[2024-05-25] MEDS: LIPITOR 80 MG PO (17:12)
[2024-05-25] MEDS: NOVOLOG FLEXPEN-MODERATE RESISTANCE SC (17:15)
[2024-05-25] MEDS: LASIX PO (17:15)
[2024-05-25] MEDS: NOVOLOG MIX 70/30 FLEXPEN SC (17:16)
[2024-05-25] MEDS: VANCOCIN 150 IV (17:16)
--- NOTE | 2024-05-26 08:12 | CM ---
Faxed PICC information and cxr to infusion room.
== END 2024-05-25 18:30 | disposition home or self-care (01) | DRG 481 ==
LOC: 2 SOUTH 15:00
PROVIDERS: Hospitalist; Physician Assistant Surgical; Radiology Diagnostic Radiology; ADMITTING PHYSICIAN Orthopaedic Surgery; CONSULT PHYSICIAN Student in an Organized Health Care Education/Training Program; OTHER PHYSICIAN Hospitalist
PROC: 0QH606Z Insertion of Intramedullary Internal Fixation Device into Right Upper Femur, Open Approach (ICD-10-PCS; 2024-05-21)
PROC: 0LBL0ZZ Excision of Right Upper Leg Tendon, Open Approach (ICD-10-PCS; 2024-05-21)
PROC: 0QP604Z Removal of Internal Fixation Device from Right Upper Femur, Open Approach (ICD-10-PCS; 2024-05-21)
PROC: 02HV33Z Insertion of Infusion Device into Superior Vena Cava, Percutaneous Approach (ICD-10-PCS; 2024-05-25)
DX: T84.620A Infection and inflammatory reaction due to internal fixation device of right femur, initial encounter (principal); I50.32 Chronic diastolic (congestive) heart failure; T81.31XA Disruption of external operation (surgical) wound, not elsewhere classified, initial encounter; E89.0 Postprocedural hypothyroidism; F32.A Depression, unspecified; I11.0 Hypertensive heart disease with heart failure; G47.419 Narcolepsy without cataplexy; I25.10 Atherosclerotic heart disease of native coronary artery without angina pectoris; Y83.8 Other surgical procedures as the cause of abnormal reaction of the patient, or of later complication, without mention of misadventure at the time of the procedure; E66.09 Other obesity due to excess calories; E11.319 Type 2 diabetes mellitus with unspecified diabetic retinopathy without macular edema; E11.40 Type 2 diabetes mellitus with diabetic neuropathy, unspecified; E11.51 Type 2 diabetes mellitus with diabetic peripheral angiopathy without gangrene; E11.65 Type 2 diabetes mellitus with hyperglycemia; E87.5 Hyperkalemia; S72.141G Displaced intertrochanteric fracture of right femur, subsequent encounter for closed fracture with delayed healing; W19.XXXD Unspecified fall, subsequent encounter; Z98.84 Bariatric surgery status; Z91.041 Radiographic dye allergy status; Z89.511 Acquired absence of right leg below knee; Z79.82 Long term (current) use of aspirin; Z79.84 Long term (current) use of oral hypoglycemic drugs; Z79.890 Hormone replacement therapy; Z79.01 Long term (current) use of anticoagulants; Z85.850 Personal history of malignant neoplasm of thyroid; Z79.4 Long term (current) use of insulin
CPT/HCPCS: 36415; 71045; 73502; 76000; 80048; 80053; 80202; 82565; 82962; 83036; 84520; 85014; 85018; 85025; 85652; 86140; 86850; 86900; 86901; 87070; 87075; 87176; 87205; 93005; 97163; 97166; 97530; C1713; C1769

== ENCOUNTER 2024-06-12 08:14 | Outpatient (RCR) | payer MEDICARE, SELFPAY ==
[2024-05-27 09:23] VITALS: BP 130/68
[2024-05-27] MEDS: INVANZ 60 MG IV (09:26)
[2024-05-27] MEDS: CUBICIN 117.6 MG IV (10:03)
[2024-05-28] MEDS: INVANZ 60 MG IV (09:34)
[2024-05-28 09:43] VITALS: BP 138/64
[2024-05-28] MEDS: CUBICIN 117.6 MG IV (10:11)
[2024-05-29 09:45] VITALS: BP 134/70
[2024-05-29] MEDS: INVANZ 60 MG IV (09:54)
[2024-05-29] MEDS: CUBICIN 117.6 MG IV (10:27)
[2024-05-30 07:36] VITALS: BP 109/61
[2024-05-30] MEDS: INVANZ 60 MG IV (07:43)
[2024-05-30] MEDS: CUBICIN 117.6 MG IV (08:15)
[2024-05-31 08:12] VITALS: BP 116/64
[2024-05-31] MEDS: INVANZ 60 MG IV (08:13)
[2024-05-31] MEDS: CUBICIN 117.6 MG IV (08:46)
[2024-06-01 08:00] VITALS: BP 114/63
[2024-06-01] MEDS: INVANZ 60 MG IV (08:12)
[2024-06-01] MEDS: CUBICIN 117.6 MG IV (08:49)
[2024-06-01 09:04] LABS: % Basophils 0.4 % (0-2); % Eosinophils 9.4 % (0-6); % Immature Granulocytes 0.2 % (0-0.5); % Lymphocytes 30.6 % (20.5-51.1); % Monocytes 8.4 % (1.7-9.3); Absolute Eosinophils 0.5 10^3/uL (0-0.7); Absolute Lymphocytes 1.5 10^3/uL (1.2-3.4); Absolute Monocytes 0.4 10^3/uL (0.1-0.6); Absolute Neutrophils 2.5 10^3/uL (1.4-6.5); Hematocrit 34.4 % (39.0-52.0); Hemoglobin 10.7 g/dL (13.0-18.0); Mean Corp Hgb Conc. 31.1 g/dL (33.0-37.0); Mean Corpuscular Hgb 27.8 pg (27.0-31.0); Mean Corpuscular Volume 89.4 fL (80.0-94.0); Mean Platelet Volume 10.9 fL (7.4-10.4); Nucleated Red Blood Cells % 0 % (-); Platelet Count 256 10^3/uL (130-400); Red Blood Cell Count 3.85 10^6/uL (4.70-6.10); White Blood Cell Count 4.9 10^3/uL (4.8-10.8)
[2024-06-01 09:16] LABS: ALT (SGPT) 28 U/L (0-50); AST (SGOT) 33 U/L (17-59); Albumin 3.6 g/dl (3.5-5.0); Alkaline Phosphatase 121 U/L (38-126); Blood Urea Nitrogen 9 mg/dl (9-20); Carbon Dioxide 28 mmol/L (22-30); Chloride 104 mmol/L (98-107); Creatine Phosphokinase 99 U/L (55-170); Glucose 78 mg/dl (70-99); Potassium 4.2 mmol/L (3.5-5.1); Sodium 140 mmol/L (135-145); Total Bilirubin 0.7 mg/dl (0.2-1.3); Total Protein 6.3 g/dl (6.3-8.2); eGFR > 60.00
[2024-06-02 08:30] VITALS: BP 118/60
[2024-06-02] MEDS: INVANZ 60 MG IV (08:45)
[2024-06-02] MEDS: CUBICIN 117.6 MG IV (09:27)
[2024-06-03 07:40] VITALS: BP 114/55
[2024-06-03] MEDS: INVANZ 60 MG IV (07:57)
[2024-06-03] MEDS: CUBICIN 117.6 MG IV (08:37)
[2024-06-04 07:45] VITALS: BP 122/54
[2024-06-04] MEDS: INVANZ 60 MG IV (08:00)
[2024-06-04] MEDS: CUBICIN 117.6 MG IV (08:37)
[2024-06-05 08:30] VITALS: BP 118/58
[2024-06-05] MEDS: INVANZ 60 MG IV (08:54)
[2024-06-05] MEDS: CUBICIN 117.6 MG IV (09:32)
[2024-06-06 07:20] VITALS: BP 116/64
[2024-06-06] MEDS: INVANZ 60 MG IV (07:20)
[2024-06-06] MEDS: CUBICIN 117.6 MG IV (07:50)
[2024-06-07] MEDS: INVANZ 60 MG IV (08:10)
[2024-06-07] MEDS: CUBICIN 117.6 MG IV (08:45)
[2024-06-07 15:09] VITALS: BP 117/68
[2024-06-08 07:45] VITALS: BP 107/55
[2024-06-08] MEDS: INVANZ 60 MG IV (08:03)
[2024-06-08 08:36] LABS: % Basophils 0.7 % (0-2); % Eosinophils 11.2 % (0-6); % Immature Granulocytes 0.4 % (0-0.5); % Lymphocytes 43.7 % (20.5-51.1); % Monocytes 6.9 % (1.7-9.3); % Neutrophils 37.1 % (42.2-75.2); Absolute Eosinophils 0.6 10^3/uL (0-0.7); Absolute Lymphocytes 2.4 10^3/uL (1.2-3.4); Absolute Monocytes 0.4 10^3/uL (0.1-0.6); Absolute Neutrophils 2.1 10^3/uL (1.4-6.5); Hematocrit 35.9 % (39.0-52.0); Hemoglobin 11.2 g/dL (13.0-18.0); Mean Corp Hgb Conc. 31.2 g/dL (33.0-37.0); Mean Corpuscular Hgb 27.8 pg (27.0-31.0); Mean Corpuscular Volume 89.1 fL (80.0-94.0); Mean Platelet Volume 10.6 fL (7.4-10.4); Nucleated Red Blood Cells % 0 % (-); Platelet Count 284 10^3/uL (130-400); Red Blood Cell Count 4.03 10^6/uL (4.70-6.10); White Blood Cell Count 5.5 10^3/uL (4.8-10.8)
[2024-06-08] MEDS: CUBICIN 117.6 MG IV (08:38)
[2024-06-08 09:17] LABS: ALT (SGPT) 57 U/L (0-50); AST (SGOT) 77 U/L (17-59); Albumin 3.9 g/dl (3.5-5.0); Alkaline Phosphatase 142 U/L (38-126); Blood Urea Nitrogen 14 mg/dl (9-20); Calcium 8.5 mg/dl (8.4-10.2); Carbon Dioxide 23 mmol/L (22-30); Chloride 104 mmol/L (98-107); Creatine Phosphokinase 95 U/L (55-170); Glucose 211 mg/dl (70-99); Sodium 139 mmol/L (135-145); Total Bilirubin 0.4 mg/dl (0.2-1.3); eGFR > 60.00
[2024-06-09] MEDS: INVANZ 60 MG IV (07:54)
[2024-06-09 08:05] VITALS: BP 134/59
[2024-06-09] MEDS: CUBICIN 117.6 MG IV (08:34)
[2024-06-10] MEDS: INVANZ 60 MG IV (07:57)
[2024-06-10 08:08] VITALS: BP 89/55
[2024-06-10] MEDS: CUBICIN 117.6 MG IV (08:35)
[2024-06-10 09:13] VITALS: BP 108/58
[2024-06-11 08:30] VITALS: BP 144/67
[2024-06-11] MEDS: INVANZ 60 MG IV (08:49)
[2024-06-11] MEDS: CUBICIN 117.6 MG IV (09:24)
[2024-06-12 08:20] VITALS: BP 126/67
[2024-06-12] MEDS: INVANZ 60 MG IV (08:36)
[2024-06-12] MEDS: CUBICIN 117.6 MG IV (09:20)
[2024-06-12] MEDS: CATHFLO/ACTIVASE 2 MG IV ×2 (09:54→10:57)
--- NOTE | 2024-06-12 10:01 | PTCARENOTE ---
no blood return from right sl picc line despite multiple repositioning of arm etc. Picc line flushing without difficulty. Cath-gsu administered per order, will monitor.
--- NOTE | 2024-06-12 12:02 | PTCARENOTE ---
1055: : no blood return noted after multiple attempts and 1 dose of cath gus, flushes easily; second dose of cath-gus administered, will monitor.
1123: +blood return noted from right sl picc line, pt d/c to home.
== END 2024-06-12 13:04 | disposition home or self-care (01) ==
LOC: OID 08:14
PROVIDERS: ATTENDING PHYSICIAN Student in an Organized Health Care Education/Training Program
DX: T84.620A Infection and inflammatory reaction due to internal fixation device of right femur, initial encounter (principal); Y83.1 Surgical operation with implant of artificial internal device as the cause of abnormal reaction of the patient, or of later complication, without mention of misadventure at the time of the procedure
CPT/HCPCS: 36591; 80053; 82550; 85025; 96365; 96367; 96368; 96374; 96376; J0878; J1335; J2997

== ENCOUNTER 2024-07-01 07:36 | Outpatient (RCR) | payer MEDICARE, SELFPAY ==
[2024-06-13] MEDS: INVANZ 60 MG IV (07:38)
[2024-06-13] MEDS: CUBICIN 117.6 MG IV (08:21)
[2024-06-13 08:34] VITALS: BP 110/64
[2024-06-14 08:04] VITALS: BP 120/70
[2024-06-14] MEDS: CUBICIN 117.6 MG IV (08:07)
[2024-06-14] MEDS: INVANZ 60 MG IV (08:08)
[2024-06-15] MEDS: INVANZ 60 MG IV (08:08)
[2024-06-15 08:16] VITALS: BP 104/58
[2024-06-15] MEDS: CUBICIN 117.6 MG IV (08:46)
[2024-06-15 09:07] LABS: % Basophils 1.4 % (0-2); % Eosinophils 15.3 % (0-6); % Immature Granulocytes 0.2 % (0-0.5); % Lymphocytes 33.3 % (20.5-51.1); % Monocytes 8.6 % (1.7-9.3); % Neutrophils 41.2 % (42.2-75.2); Absolute Basophils 0.1 10^3/uL (0-0.2); Absolute Eosinophils 0.8 10^3/uL (0-0.7); Absolute Lymphocytes 1.7 10^3/uL (1.2-3.4); Absolute Monocytes 0.4 10^3/uL (0.1-0.6); Absolute Neutrophils 2.1 10^3/uL (1.4-6.5); Hematocrit 35.3 % (39.0-52.0); Hemoglobin 11.2 g/dL (13.0-18.0); Mean Corp Hgb Conc. 31.7 g/dL (33.0-37.0); Mean Corpuscular Hgb 27.9 pg (27.0-31.0); Mean Corpuscular Volume 87.8 fL (80.0-94.0); Mean Platelet Volume 11.3 fL (7.4-10.4); Nucleated Red Blood Cells % 0 % (-); Platelet Count 244 10^3/uL (130-400); Red Blood Cell Count 4.02 10^6/uL (4.70-6.10); Red Cell Dist. Width 13.6 % (11.5-14.5)
[2024-06-15 09:38] LABS: ALT (SGPT) 24 U/L (0-50); AST (SGOT) 27 U/L (17-59); Alkaline Phosphatase 128 U/L (38-126); Blood Urea Nitrogen 8 mg/dl (9-20); Calcium 8.5 mg/dl (8.4-10.2); Carbon Dioxide 24 mmol/L (22-30); Chloride 107 mmol/L (98-107); Creatine Phosphokinase 91 U/L (55-170); Glucose 72 mg/dl (70-99); Potassium 4.2 mmol/L (3.5-5.1); Sodium 140 mmol/L (135-145); Total Bilirubin 0.5 mg/dl (0.2-1.3); Total Protein 7.3 g/dl (6.3-8.2); eGFR > 60.00
[2024-06-16 07:50] VITALS: BP 147/69
[2024-06-16] MEDS: INVANZ 60 MG IV (08:00)
[2024-06-16] MEDS: CUBICIN 117.6 MG IV (08:32)
[2024-06-17 08:42] VITALS: BP 145/61
[2024-06-17] MEDS: INVANZ 60 MG IV (08:50)
[2024-06-17] MEDS: CUBICIN 117.6 MG IV (09:26)
[2024-06-18 07:45] VITALS: BP 104/59
[2024-06-18] MEDS: INVANZ 60 MG IV (08:05)
[2024-06-18] MEDS: CUBICIN 117.6 MG IV (08:41)
[2024-06-19 07:50] VITALS: BP 128/58
[2024-06-19] MEDS: INVANZ 60 MG IV (08:06)
[2024-06-19] MEDS: CUBICIN 117.6 MG IV (08:45)
[2024-06-20 07:15] VITALS: BP 118/74
[2024-06-20] MEDS: CUBICIN 117.6 MG IV (07:22)
[2024-06-20] MEDS: INVANZ 60 MG IV (07:54)
[2024-06-21] MEDS: INVANZ 60 MG IV (09:52)
[2024-06-21 09:57] VITALS: BP 136/71
[2024-06-21] MEDS: CUBICIN 117.6 MG IV (10:32)
[2024-06-22 09:22] VITALS: BP 121/70
[2024-06-22] MEDS: CUBICIN 117.6 MG IV (09:28)
[2024-06-22 09:32] LABS: % Basophils 0.8 % (0-2); % Eosinophils 18.7 % (0-6); % Immature Granulocytes 0.2 % (0-0.5); % Lymphocytes 32.5 % (20.5-51.1); % Monocytes 6.6 % (1.7-9.3); % Neutrophils 41.2 % (42.2-75.2); Absolute Basophils 0.1 10^3/uL (0-0.2); Absolute Eosinophils 1.1 10^3/uL (0-0.7); Absolute Lymphocytes 1.9 10^3/uL (1.2-3.4); Absolute Monocytes 0.4 10^3/uL (0.1-0.6); Absolute Neutrophils 2.5 10^3/uL (1.4-6.5); Hematocrit 38.7 % (39.0-52.0); Hemoglobin 12.3 g/dL (13.0-18.0); Mean Corp Hgb Conc. 31.8 g/dL (33.0-37.0); Mean Corpuscular Hgb 27.7 pg (27.0-31.0); Mean Corpuscular Volume 87.2 fL (80.0-94.0); Mean Platelet Volume 10.1 fL (7.4-10.4); Platelet Count 249 10^3/uL (130-400); Red Blood Cell Count 4.44 10^6/uL (4.70-6.10); Red Cell Dist. Width 13.6 % (11.5-14.5); White Blood Cell Count 5.9 10^3/uL (4.8-10.8)
[2024-06-22] MEDS: INVANZ 60 MG IV (10:03)
[2024-06-22 10:24] LABS: ALT (SGPT) 28 U/L (0-50); AST (SGOT) 29 U/L (17-59); Albumin 3.6 g/dl (3.5-5.0); Alkaline Phosphatase 157 U/L (38-126); Blood Urea Nitrogen 14 mg/dl (9-20); Calcium 8.6 mg/dl (8.4-10.2); Carbon Dioxide 25 mmol/L (22-30); Chloride 103 mmol/L (98-107); Creatine Phosphokinase 72 U/L (55-170); Glucose 309 mg/dl (70-99); Potassium 4.5 mmol/L (3.5-5.1); Sodium 135 mmol/L (135-145); Total Bilirubin 0.3 mg/dl (0.2-1.3); Total Protein 6.9 g/dl (6.3-8.2); eGFR > 60.00
[2024-06-23 08:37] VITALS: BP 132/83
[2024-06-23] MEDS: INVANZ 60 MG IV (08:43)
[2024-06-23] MEDS: CUBICIN 117.6 MG IV (09:20)
[2024-06-24 08:42] VITALS: BP 132/80
[2024-06-24] MEDS: INVANZ 60 MG IV (08:48)
[2024-06-24] MEDS: CUBICIN 117.6 MG IV (09:25)
[2024-06-25 07:50] VITALS: BP 128/65
[2024-06-25] MEDS: INVANZ 60 MG IV (08:00)
[2024-06-25] MEDS: CUBICIN 117.6 MG IV (08:37)
[2024-06-26 08:20] VITALS: BP 127/58
[2024-06-26] MEDS: INVANZ 60 MG IV (08:27)
[2024-06-26] MEDS: CUBICIN 117.6 MG IV (09:02)
[2024-06-27 08:09] VITALS: BP 124/70
[2024-06-27] MEDS: CUBICIN 117.6 MG IV (08:17)
[2024-06-27] MEDS: INVANZ 60 MG IV (09:13)
[2024-06-28] MEDS: CUBICIN 117.6 MG IV (08:21)
[2024-06-28 08:23] VITALS: BP 122/65
[2024-06-28] MEDS: INVANZ 60 MG IV (08:54)
[2024-06-29 08:45] VITALS: BP 126/56
[2024-06-29] MEDS: INVANZ 60 MG IV (09:02)
[2024-06-29 09:29] LABS: % Basophils 0.8 % (0-2); % Eosinophils 17.2 % (0-6); % Immature Granulocytes 0.4 % (0-0.5); % Lymphocytes 23.9 % (20.5-51.1); % Monocytes 6.4 % (1.7-9.3); % Neutrophils 51.3 % (42.2-75.2); Absolute Basophils 0.1 10^3/uL (0-0.2); Absolute Eosinophils 1.3 10^3/uL (0-0.7); Absolute Lymphocytes 1.8 10^3/uL (1.2-3.4); Absolute Monocytes 0.5 10^3/uL (0.1-0.6); Absolute Neutrophils 3.8 10^3/uL (1.4-6.5); Hematocrit 38.4 % (39.0-52.0); Hemoglobin 12.2 g/dL (13.0-18.0); Mean Corp Hgb Conc. 31.8 g/dL (33.0-37.0); Mean Corpuscular Hgb 27.3 pg (27.0-31.0); Mean Corpuscular Volume 85.9 fL (80.0-94.0); Mean Platelet Volume 11.2 fL (7.4-10.4); Nucleated Red Blood Cells % 0 % (-); Platelet Count 258 10^3/uL (130-400); Red Blood Cell Count 4.47 10^6/uL (4.70-6.10); Red Cell Dist. Width 13.9 % (11.5-14.5); White Blood Cell Count 7.5 10^3/uL (4.8-10.8)
[2024-06-29] MEDS: CUBICIN 117.6 MG IV (09:35)
[2024-06-29 10:12] LABS: ALT (SGPT) 33 U/L (0-50); AST (SGOT) 30 U/L (17-59); Albumin 3.6 g/dl (3.5-5.0); Alkaline Phosphatase 145 U/L (38-126); Blood Urea Nitrogen 13 mg/dl (9-20); Calcium 8.5 mg/dl (8.4-10.2); Carbon Dioxide 22 mmol/L (22-30); Chloride 103 mmol/L (98-107); Creatine Phosphokinase 87 U/L (55-170); Glucose 289 mg/dl (70-99); Potassium 4.7 mmol/L (3.5-5.1); Sodium 135 mmol/L (135-145); Total Bilirubin 0.5 mg/dl (0.2-1.3); Total Protein 6.7 g/dl (6.3-8.2); eGFR > 60.00
[2024-06-30] MEDS: INVANZ 60 MG IV (08:05)
[2024-06-30 08:10] VITALS: BP 113/63
[2024-06-30] MEDS: CUBICIN 117.6 MG IV (08:42)
[2024-07-01 07:45] VITALS: BP 132/62
[2024-07-01] MEDS: INVANZ 60 MG IV (07:56)
[2024-07-01] MEDS: CUBICIN 117.6 MG IV (08:32)
--- NOTE | 2024-07-01 09:18 | PTCARENOTE ---
right sl picc line d/c per order; 43cm retrieved, pt tolerated well, no bleeding noted, pressure dressing applied. pt d/c to home.
== END 2024-07-02 10:42 | disposition home or self-care (01) ==
LOC: OID 07:36
PROVIDERS: ATTENDING PHYSICIAN Student in an Organized Health Care Education/Training Program
DX: T84.620A Infection and inflammatory reaction due to internal fixation device of right femur, initial encounter (principal); Y83.1 Surgical operation with implant of artificial internal device as the cause of abnormal reaction of the patient, or of later complication, without mention of misadventure at the time of the procedure
CPT/HCPCS: 36591; 80053; 82550; 85025; 96365; 96367; 96368; J0878; J1335

== ENCOUNTER → 2024-07-06 06:50 | Outpatient (REF) | payer MEDICARE, SELFPAY | LOC: RAD 06:50 | PROVIDERS: ATTENDING PHYSICIAN Surgery Vascular Surgery | DX: I73.9 Peripheral vascular disease, unspecified (principal) | CPT/HCPCS: 93922; 93925 ==

== ENCOUNTER → 2024-09-23 07:02 | Outpatient (REF) | payer MEDICARE, SELFPAY ==
[2024-09-23 10:02] LABS: % Basophils 1.1 % (0-2); % Eosinophils 8.6 % (0-6); % Immature Granulocytes 0.3 % (0-0.5); % Lymphocytes 28.5 % (20.5-51.1); % Monocytes 7.6 % (1.7-9.3); % Neutrophils 53.9 % (42.2-75.2); Absolute Basophils 0.1 10^3/uL (0-0.2); Absolute Eosinophils 0.6 10^3/uL (0-0.7); Absolute Monocytes 0.5 10^3/uL (0.1-0.6); Absolute Neutrophils 3.8 10^3/uL (1.4-6.5); Hematocrit 45.2 % (39.0-52.0); Hemoglobin 13.9 g/dL (13.0-18.0); Mean Corp Hgb Conc. 30.8 g/dL (33.0-37.0); Mean Corpuscular Hgb 26.7 pg (27.0-31.0); Mean Corpuscular Volume 86.8 fL (80.0-94.0); Mean Platelet Volume 12.1 fL (7.4-10.4); Nucleated Red Blood Cells % 0 % (-); Platelet Count 248 10^3/uL (130-400); Red Blood Cell Count 5.21 10^6/uL (4.70-6.10); Red Cell Dist. Width 16.5 % (11.5-14.5)
[2024-09-23 10:52] LABS: TSH Reflex To Free T4 0.31 uIU/ml (0.47-4.68)
[2024-09-23 11:21] LABS: Free T4 1.13 ng/dl (0.78-2.19)
[2024-09-25 12:42] LABS: Number Of Markers 26 markers; Source Blood
== END ==
LOC: HWRAD 07:02
PROVIDERS: ATTENDING PHYSICIAN Internal Medicine Hematology & Oncology; REFERRING PHYSICIAN Student in an Organized Health Care Education/Training Program
DX: R10.9 Unspecified abdominal pain (principal); I50.42 Chronic combined systolic (congestive) and diastolic (congestive) heart failure; D72.10 Eosinophilia, unspecified
CPT/HCPCS: 36415; 76700; 84439; 84443; 85025

== ENCOUNTER → 2024-10-28 15:30 | Outpatient (REF) | payer MEDICARE, SELFPAY | LOC: HWRAD 15:30 | PROVIDERS: ATTENDING PHYSICIAN Internal Medicine Hematology & Oncology | DX: D72.10 Eosinophilia, unspecified (principal) | CPT/HCPCS: 76536 ==

== ENCOUNTER → 2024-12-07 07:37 | Outpatient (REF) | payer MEDICARE, SELFPAY ==
[2024-12-07 08:46] LABS: Hematocrit 42.8 % (39.0-52.0); Hemoglobin 13.2 g/dL (13.0-18.0); Mean Corp Hgb Conc. 30.8 g/dL (33.0-37.0); Mean Corpuscular Volume 91.1 fL (80.0-94.0); Nucleated Red Blood Cells % 0 % (-); Platelet Count 233 10^3/uL (130-400); Red Cell Dist. Width 15.4 % (11.5-14.5)
== END ==
LOC: REG 07:37
PROVIDERS: ATTENDING PHYSICIAN Internal Medicine Hematology & Oncology; FAMILY PHYSICIAN Student in an Organized Health Care Education/Training Program
DX: C73 Malignant neoplasm of thyroid gland (principal); D72.10 Eosinophilia, unspecified
CPT/HCPCS: 36415; 84439; 84443; 85025

== ENCOUNTER → 2024-12-07 12:22 | Outpatient (REF) | payer MEDICARE, SELFPAY | LOC: PAVMRI 12:22 | PROVIDERS: ATTENDING PHYSICIAN Internal Medicine Hematology & Oncology | DX: D72.10 Eosinophilia, unspecified (principal) | CPT/HCPCS: 74183; A9575 ==

== ENCOUNTER → 2025-01-18 10:38 | Outpatient (REF) | payer MEDICARE, SELFPAY ==
[2025-01-18 12:18] LABS: Hematocrit 43.2 % (39.0-52.0); Hemoglobin 13.8 g/dL (13.0-18.0); Mean Corp Hgb Conc. 31.9 g/dL (33.0-37.0); Mean Corpuscular Volume 90.4 fL (80.0-94.0); Nucleated Red Blood Cells % 0 % (-); Platelet Count 234 10^3/uL (130-400); Red Cell Dist. Width 14.9 % (11.5-14.5)
[2025-01-18 12:41] LABS: Alkaline Phosphatase, Total 98 U/L (38-126); HDL Cholesterol 36 mg/dl; LDL Cholesterol, Calculated 33 mg/dl; Very Low Density Lipoprotein 32 mg/dl (0-30)
[2025-01-18 12:57] LABS: Microalb - Urine Creatinine 49.500 mg/dl
[2025-01-18 13:07] LABS: Microalbumin, Random Urine <0.6 mg/dl (0.6-1.7)
[2025-01-18 13:11] LABS: GGTP 58 U/L (15-73)
[2025-01-18 13:26] LABS: Alk Phos After Heat 96; Alkaline Phosphatase Percent 97.96
[2025-01-18 14:06] LABS: Glycohemoglobin (HgbA1c) 7.7 % (4.0-5.6)
== END ==
LOC: HWLAB 10:38
PROVIDERS: ATTENDING PHYSICIAN Student in an Organized Health Care Education/Training Program
DX: L97.529 Non-pressure chronic ulcer of other part of left foot with unspecified severity (principal); R74.8 Abnormal levels of other serum enzymes; E11.69 Type 2 diabetes mellitus with other specified complication
CPT/HCPCS: 36415; 73630; 80061; 82043; 82570; 82977; 83036; 84078; 85025

== ENCOUNTER → 2025-01-19 13:34 | Outpatient (REF) | payer MEDICARE, SELFPAY | LOC: REG 13:34 | PROVIDERS: ATTENDING PHYSICIAN Student in an Organized Health Care Education/Training Program | DX: M79.672 Pain in left foot (principal) | CPT/HCPCS: 87070; 87075; 87077; 87205 ==

== ENCOUNTER → 2025-02-08 16:29 | Outpatient (REF) | payer MEDICARE, SELFPAY | LOC: REG 16:29 | PROVIDERS: ATTENDING PHYSICIAN Student in an Organized Health Care Education/Training Program | DX: E03.9 Hypothyroidism, unspecified (principal) | CPT/HCPCS: 36415; 84443 ==

== ENCOUNTER → 2025-02-22 11:14 | Outpatient (REF) | payer MEDICARE, SELFPAY ==
[2025-02-22 15:40] LABS: Blood Urea Nitrogen 19 mg/dl (9-20); Calcium 8.6 mg/dl (8.4-10.2); Carbon Dioxide 28 mmol/L (22-30); Chloride 105 mmol/L (98-107); Glucose 172 mg/dl (70-99); Potassium 4.6 mmol/L (3.5-5.1); Sodium 140 mmol/L (135-145); eGFR > 60.00
== END ==
LOC: HWLAB 11:14
PROVIDERS: ATTENDING PHYSICIAN Student in an Organized Health Care Education/Training Program; FAMILY PHYSICIAN Student in an Organized Health Care Education/Training Program
DX: Z01.818 Encounter for other preprocedural examination (principal)
CPT/HCPCS: 36415; 80048

== ENCOUNTER 2025-03-08 05:44 | Day surgery (SDC) | payer MEDICARE, SELFPAY ==
[2025-03-08] VITALS (8 sets, daily range): BP systolic 89–103; BP diastolic 55–68; PULSE 77; O2SAT 94; BMI 40.3
[2025-03-08] MEDS: NORMOSOL-R/PLASMALYTE-A 1000 IV (06:28)
[2025-03-08 06:30] LABS: Glucose - Point of Care 148 mg/dl (70-99)
[2025-03-08] MEDS: CELEBREX 200 MG PO (06:30)
[2025-03-08] MEDS: TYLENOL 1000 MG PO (06:30)
[2025-03-08 07:37] LABS: Glucose - Point of Care 135 mg/dl (70-99)
== END 2025-03-08 09:40 | disposition home or self-care (01) ==
LOC: SDS 05:44
PROVIDERS: ATTENDING PHYSICIAN Student in an Organized Health Care Education/Training Program
DX: E10.69 Type 1 diabetes mellitus with other specified complication (principal); M86.8X7 Other osteomyelitis, ankle and foot; M79.672 Pain in left foot; L02.612 Cutaneous abscess of left foot
CPT/HCPCS: 28825; 82962; 88304; 88311; 97162

== ENCOUNTER → 2025-05-10 11:01 | Outpatient (REF) | payer MEDICARE, SELFPAY ==
[2025-05-10 12:32] LABS: ALT (SGPT) 26 U/L (0-50); AST (SGOT) 28 U/L (17-59); Albumin 4.2 g/dl (3.5-5.0); Alkaline Phosphatase 97 U/L (38-126); Blood Urea Nitrogen 16 mg/dl (9-20); Calcium 9.0 mg/dl (8.4-10.2); Carbon Dioxide 27 mmol/L (22-30); Chloride 105 mmol/L (98-107); Glucose 94 mg/dl (70-99); Potassium 5.2 mmol/L (3.5-5.1); Sodium 140 mmol/L (135-145); Total Protein 7.4 g/dl (6.3-8.2); eGFR > 60.00
[2025-05-10 13:58] LABS: Glycohemoglobin (HgbA1c) 6.4 % (4.0-5.9)
== END ==
LOC: REG 11:01
DX: E11.69 Type 2 diabetes mellitus with other specified complication (principal)
CPT/HCPCS: 36415; 80053; 83036